=== PATIENT | male | born 1945 | race Caucasian/White ===

== ENCOUNTER 2017-01-19 22:46 | Inpatient (IN) | payer MEDICARE ==
[~2017-01-19] VITALS: Ht 180.3 cm; Wt 72.1 kg
[2017-01-19 23:43] LABS: BASO % 0 % (0-3); EOS % 0 % (0-3); HEMATOCRIT 43.4 % (39.0-53.0); HEMOGLOBIN 14.4 g/dL (13.0-17.5); LYMPH # 0.2 x10^3/uL (1.0-4.8); LYMPH % 3 % (24-48); MEAN CORPUSCULAR HEMOGLOBIN 30 pg (25-35); MEAN CORPUSCULAR HGB CONC 33 g/dL (31-37); MEAN CORPUSCULAR VOLUME 91 fL (79-100); MONO % 5 % (0-9); NEUT % 93 % (31-73); PLATELET COUNT 171 x10^3/uL (140-400); RED BLOOD COUNT 4.77 x10^6/uL (4.30-5.70); RED CELL DISTRIBUTION WIDTH 13.7 % (11.5-14.5); WHITE BLOOD COUNT 9.9 x10^3/uL (4.0-11.0)
[2017-01-19] MEDS ORDERED: PROCHLORPERAZINE 10 MG/2 ML VIAL. IV ONE (23:45)
[2017-01-19] MEDS ORDERED: ACETAMINOPHEN 325 MG TABLET. PO ONE (23:45)
[2017-01-19] MEDS ORDERED: IV NORMAL SALINE 1000ML BAG 1,000 ML IV SCH (23:45)
[2017-01-19] MEDS ORDERED: IPRATRPIUM/ALBUTEROL 0.5/2.5MG 3 ML NEBU. NEB ONE (23:45)
[2017-01-19] MEDS ORDERED: PREDNISONE 10 MG TABLET PO ONE (23:45)
[2017-01-20 00:01] LABS: ALBUMIN 3.5 g/dL (3.4-5.0); CREATININE 1.2 mg/dL (0.7-1.3); GFR 59.5; POTASSIUM 4.6 mmol/L (3.5-5.1); TOTAL BILIRUBIN 0.4 mg/dL (0.2-1.0)
[2017-01-20 00:11] LABS: CALCIUM 15.3 mg/dL (8.5-10.1)
[2017-01-20] MEDS ORDERED: ASPIRIN 81 MG TAB.CHEW PO ONE (00:15)
[2017-01-20] MEDS ORDERED: IOHEXOL 300 MG/ML 75 ML VIAL IV ONE (00:15)
[2017-01-20] MEDS ORDERED: CONTRAST GIVEN MC PRN (00:15)
[2017-01-20 00:23] LABS: OBC FLU VALID
--- NOTE | 2017-01-20 00:41 | RAD ---
CT head without contrast Indication: Headache and confusion. Axial imaging through the brain was performed without contrast. PQRS STATEMENT One or more of the following individualized dose reduction techniques were utilized for this study: 1.Automated exposure control. 2.Adjustment of the mA and/orkVaccording to patient size. 3.Use of iterative reconstruction technique. No prior studies are available for comparison. The ventricles and sulci are appropriate for the patient's age. No sulcal effacement, midline shift or hemorrhage is detected. The cisterns are patent. The visualized paranasal sinuses are clear. Impression: No acute intracranial process is detected. Electronically signed by: Patrick Yanez MD (Jan 20, 2017 00:40:19)
--- NOTE | 2017-01-20 00:48 | RAD ---
CT angiogram of the chest with contrast Indication: Hypoxia with cough and shortness of breath. Axial imaging through the chest was performed after the administration of intravenous contrast and utilizing the CT angiography protocol. Multiplanar, 3D and MIP reformations were also performed. PQRS STATEMENT One or more of the following individualized dose reduction techniques were utilized for this study: 1.Automated exposure control. 2.Adjustment of the mA and/orkVaccording to patient size. 3.Use of iterative reconstruction technique. No prior studies are available for comparison. Evaluation of the pulmonary arterial system is without evidence of thromboembolism. No filling defects are identified. The thoracic aorta is without dissection. Ascending aorta is dilated measuring 4.6 centimeters AP diameter. No axillary lymphadenopathy is identified. There is a soft tissue mass identified the right paratracheal and right hilar region. This is ill-defined and difficult to measure. Abnormal parenchymal density does extend into the right lung apex. At the level of the danii the soft tissue measures approximately 3.8 centimeters transverse by 3.3 centimeters AP. Soft tissue has a cephalocaudal measurement up to 10.6 centimeters. Abnormal soft tissues is identified in the subcarinal region. The left hilum is unremarkable. Severe emphysematous changes are identified in both lungs. There are interstitial fibrotic changes identified. No pericardial fluid is seen. There is trace pleural fluid or pleural thickening on the left. The upper abdomen is unremarkable. Impression: No evidence of pulmonary embolism or thoracic aortic dissection. There is mild dilatation of the ascending thoracic aorta. Mediastinal and right hilar mass with abnormal soft tissue extending into the right apex. This is likely owing to neoplasm. There are severe emphysematous changes throughout both lungs as well. Electronically signed by: Patrick Yanez MD (Jan 20, 2017 00:46:24)
[2017-01-20] MEDS ORDERED: IV NORMAL SALINE 1000ML BAG 1,000 ML IV ONE (01:00)
[2017-01-20 01:23] LABS: % EOS 1 % (0-5); PLT ESTIMATE ADEQUATE (ADEQUATE)
--- NOTE | 2017-01-20 01:24 | PHYS DOC ---
Past Medical History Past Medical History: High Cholesterol Additional Past Medical Histor: LUNG CA, CONSTIPATION, COPD, IRREGULAR HEART RYTHM Past Surgical History: Other Additional Past Surgical Histo: PORT THUMB SX Alcohol Use: None Drug Use: None Adult General Chief Complaint Chief Complaint: SHORTNESS OF BREATH HPI HPI Patient is a 71 year old male who presents with multiple complaints. He is accompanied by his , who contributes to history. Starting today he has been having increasing shortness of breath; this is worse with exertion. He is also been feeling weak, having nausea and vomiting, productive cough, aches in his arms, headache, fuzzy vision. He denies any chest pain. Patient has subjective fever last night, but does not feel so today. He has taken some Tylenol for pain with insufficient relief. Of note, patient has history of lung cancer and COPD. He also recently drove a motorhome to [place] and back. Review of Systems Review of Systems Constitutional: Subjective fever yesterday Eyes: Fuzzy vision, denies eye pain HENT: Denies nasal congestion or sore throat Respiratory: Productive cough, shortness of breath Cardiovascular: Denies chest pain GI: Nausea/vomiting. Denies abdominal pain, bloody stools or diarrhea : Denies dysuria or hematuria Musculoskeletal: B/l arm aching Integument: Denies rash or skin lesions Neurologic: Mild headache. Denies focal weakness or sensory changes Current Medications Current Medications Current Medications Medications (Trade) Dose Ordered Sig/Isaías Start Time Stop Time Status Last Admin Dose Admin Acetaminophen (Tylenol) 650 mg 1X ONCE 01/19/17 23:45 01/19/17 23:46 DC 01/20/17 00:07 650 MG Albuterol/ Ipratropium (Duoneb) 3 ml 1X ONCE 01/19/17 23:45 01/19/17 23:46 DC 01/20/17 00:39 3 ML Aspirin 324 mg 324 mg 1X ONCE 01/20/17 00:15 01/20/17 00:16 DC 01/20/17 00:46 324 MG Info (Do NOT chart on this entry -- for MONITORING) 1 each PRN DAILY PRN 01/20/17 00:15 01/22/17 00:14 Iohexol (Omnipaque 300 Mg/ml) 75 ml 1X ONCE 01/20/17 00:15 01/20/17 00:16 DC 01/20/17 00:23 75 ML Prednisone (Prednisone) 60 mg 1X ONCE 01/19/17 23:45 01/19/17 23:46 DC 01/20/17 00:07 60 MG Prochlorperazine Edisylate (Compazine) 10 mg 1X ONCE 01/19/17 23:45 01/19/17 23:46 DC 01/19/17 23:58 10 MG Sodium Chloride (Iv Sodium Chloride 0.9% 1000ml Bag) 1,000 ml @ 1,000 mls/hr 1X ONCE 01/20/17 01:00 01/20/17 01:59 DC 01/20/17 01:00 1,000 MLS/HR Allergies Allergies Allergies Coded Allergies Type Severity Reaction Last Updated Verified No Known Drug Allergies 01/19/17 No Physical Exam Physical Exam Constitutional: Well developed, well nourished, no acute distress, non-toxic appearance HENT: Normocephalic, atraumatic, bilateral external ears normal Eyes: PERRL, EOMI, conjunctiva normal, no discharge Neck: Normal range of motion, no stridor Cardiovascular: Heart rate normal, regular rhythm, no murmur Lungs & Thorax: Diminished breath sounds in b/l bases; frequent cough productive for thick brown sputum Abdomen: Bowel sounds normal, soft, non-distended, no TTP Skin: Warm, dry, no erythema, no rash Extremities: No obvious deformity, no edema Neurologic: Alert and oriented X 3, strength and sensation to light touch intact throughout, CN II-XII grossly intact, nystagmus to R noted Current Patient Data Vital Signs Vital Signs Date Time Temp Pulse Resp B/P Pulse Ox O2 Delivery O2 Flow Rate FiO2 01/20/17 01:14 90 21 138/84 91 Nasal Cannula 4 01/19/17 23:17 97.6 97.6 Lab Values Laboratory Tests Test 01/19/17 23:26 01/19/17 23:50 White Blood Count 9.9x10^3/uL (4.0-11.0) Red Blood Count 4.77x10^6/uL (4.30-5.70) Hemoglobin 14.4g/dL (13.0-17.5) Hematocrit 43.4% (39.0-53.0) Mean Corpuscular Volume 91fL (79-100) Mean Corpuscular Hemoglobin 30pg (25-35) Mean Corpuscular Hemoglobin Concent 33g/dL (31-37) Red Cell Distribution Width 13.7% (11.5-14.5) Platelet Count 171x10^3/uL (140-400) Neutrophils (%) (Auto) 93% (31-73) H Lymphocytes (%) (Auto) 3% (24-48) L Monocytes (%) (Auto) 5% (0-9) Eosinophils (%) (Auto) 0% (0-3) Basophils (%) (Auto) 0% (0-3) Neutrophils # (Auto) 9.2x10^3uL (1.8-7.7) H Lymphocytes # (Auto) 0.2x10^3/uL (1.0-4.8) L Monocytes # (Auto) 0.5x10^3/uL (0.0-1.1) Eosinophils # (Auto) 0.0x10^3/uL (0.0-0.7) Basophils # (Auto) 0.0x10^3/uL (0.0-0.2) Segmented Neutrophils % 97% (35-66) H Monocytes % 2% (0-10) Eosinophils % 1% (0-5) Platelet Estimate Adequate (ADEQUATE) Sodium Level 146mmol/L (136-145) H Potassium Level 4.6mmol/L (3.5-5.1) Chloride Level 104mmol/L (98-107) Carbon Dioxide Level 38mmol/L (21-32) H Anion Gap 4 (6-14) L Blood Urea Nitrogen 25mg/dL (8-26) Creatinine 1.2mg/dL (0.7-1.3) Estimated GFR (Cockcroft-Gault) 59.5 BUN/Creatinine Ratio 21 (6-20) H Glucose Level 137mg/dL (70-99) H Calcium Level 15.3mg/dL (8.5-10.1) *H Total Bilirubin 0.4mg/dL (0.2-1.0) Aspartate Amino Transferase (AST) 38U/L (15-37) H Alanine Aminotransferase (ALT) 35U/L (16-63) Alkaline Phosphatase 128U/L (46-116) H Troponin I Quantitative 0.121ng/mL (0.000-0.055) Total Protein 7.0g/dL (6.4-8.2) Albumin 3.5g/dL (3.4-5.0) Albumin/Globulin Ratio 1.0 (1.0-1.7) Influenza Type A Antigen Negative (NEGATIVE) Influenza Type B Antigen Negative (NEGATIVE) Laboratory Tests 01/19/17 23:26 Laboratory Tests 01/19/17 23:26 EKG EKG EKG (my read): sinus rhythm, rate 82, normal axis, intervals wnl, no clear ST/T changes, limited by artifact Radiology/Procedures Radiology/Procedures CXR (my read): Streaky opacity R midlung, hazy opacity R upper lung field CT head: Impression: No acute intracranial process is detected. CTA chest: Impression: No evidence of pulmonary embolism or thoracic aortic dissection. There is mild dilatation of the ascending thoracic aorta. Mediastinal and right hilar mass with abnormal soft tissue extending into the right apex. This is likely owing to neoplasm. There are severe emphysematous changes throughout both lungs as well. Course & Med Decision Making Course & Med Decision Making Pertinent Labs and Imaging studies reviewed. (See chart for details) Patient is 71-year-old male who presents with shortness of breath, nausea and vomiting, headache, aching in his arms. Suspect shortness of breath largely related to COPD. However also consider possibility of PE given history of cancer and recent long-distance road trip. Will obtain EKG, chest x-ray, CT head , CTA chest, labs to evaluate. IV fluids, nausea medication, acetaminophen, breathing treatment, steroids ordered for relief of symptoms. EKG and imaging results as above. Labs most notable for hypercalcemia, slightly elevated troponin. Dose of aspirin ordered. I spoke with Dr. Gonzalez; we will trend troponins and not anticoagulate at this time as patient does not have convincing symptoms of ACS. We will go ahead and cover for possible pneumonia as patient is on chemotherapy treatment has productive cough. Discussed results and plan with patient and family. We will admit under the care of Dr. Briggs for further evaluation and treatment. Dragon Disclaimer Dragon Disclaimer This electronic medical record was generated, in whole or in part, using a voice recognition dictation system. Departure Departure Impression: Primary Impression: SOB (shortness of breath) Additional Impressions: Hypoxia Hypercalcemia Disposition: ADMITTED INPATIENT Admitting Physician: Erin Briggs Condition: GUARDED Referrals: NO PCP (PCP) Problem Qualifiers YASIR CASTILLO MD Jan 20, 2017 01:24
[2017-01-20] MEDS ORDERED: PIPERACILLIN/TAZOBACTAM 4.5 GM in IV NORMAL SALINE 100ML 100 ML IV ONE (01:30)
[2017-01-20] MEDS ORDERED: ACETAMINOPHEN 325 MG TABLET. PO PRN ×2 (01:30→09:45)
[2017-01-20] MEDS ORDERED: ONDANSETRON PF 4 MG/2 ML VIAL. IV PRN (01:30)
[2017-01-20] MEDS ORDERED: MORPHINE SULFATE 4 MG/ML DISP.SYRIN. IV PRN (01:30)
[2017-01-20] MEDS ORDERED: PIP/TAZO PER PHARMACY MC PRN (01:30)
[2017-01-20] MEDS ORDERED: VANCOMYCIN 1.75 GM in IV NORMAL SALINE 500ML BAG 500 ML IV ONE (02:30)
--- NOTE | 2017-01-20 02:33 | ACF ---
Admission Forms Criteria HYPONATREMIA; HYPERNATREMIA; HYPOKALEMIA; HYPERKALEMIA; HYPOCALCEMIA; HYPERCALCEMIA Clinical Indications for Inpatient Care (Place 'X' for any and all applicable criteria): Ongoing inpatient care may be indicated for ANY ONE of the following [G](1)(2)(3 )(5): [ ]I. Hyponatremia with ANY ONE of the following: [ ]a) Sodium less than 130 mEq/L (mmol/L) (new) (6)(22) [ ]b) Sodium less than 135 mEq/L (mmol/L) with ANY ONE of the following: [ ]i) Severe medical etiology requiring inpatient management (eg, heart failure, hypovolemia) [ ]ii) Altered mental status [ ]iii) Seizures [ ]II. Hypernatremia with ANY ONE of the following: [ ]a) Sodium greater than 155 mEq/L (mmol/L) [ ]b) Sodium greater than 150 mEq/L (mmol/L) with ANY ONE of the following: [ ] i) Altered mental status [ ]ii) Seizures [ ]iii) Severe medical etiology (eg, hypovolemia, diabetes insipidus) [ ]iv) Severe weakness [ ]v) Severe medical etiology (eg, hemolysis, infection, drug overdose) [ ]III. Hypokalemia with ANY ONE of the following: [ ]a) Potassium less than 2.5 mEq/L (mmol/L) despite outpatient and emergency treatment [ ]b) Potassium less than 3.0 mEq/L (mmol/L) with ANY ONE of the following: [ ]i) Weakness [ ]ii) Cardiac abnormality (eg, arrhythmia, conduction disturbance) [ ]iii) Cardiac ischemia [ ]iv) Ileus [ ]v) Ongoing medical cause requiring inpatient management. ( e.g., acute renal wasting, SIADH) [ ]vi) Other severe symptoms [ ] IV. Hyperkalemia with ANY ONE of the following: [ ]a) Potassium greater than 6.5 mEq/L (mmol/L) [ ]b) Potassium greater than 5 mEq/L (mmol/L) with ANY ONE of the following: [ ]i) Severe ECG findings [H] [ ]ii) Acute worsening of renal failure (creatinine greater than 2.5 mg/dL (221 micromoles/L) or significant elevation for age and size) [ ] V. Hypocalcemia with ANY ONE of the following: [ ]a) Calcium less than 7 mg/dL (1.75 mmol/L) despite outpatient and emergency treatment(19) [ ]b) Calcium less than 8 mg/dL (2 mmol/L) with significant symptoms or findings; examples include: [ ]i) Cardiac abnormality (eg, arrhythmia or conduction disturbance) [ ]ii) Altered mental status [ ]iii) Seizures [ ]iv) Breathing difficulty [ ]v) Muscle spasms [X]. Hypercalcemia with ANY ONE of the following: [X]a) Calcium greater than 14 mg/dL (3.5 mmol/L) [ ]b) Calcium greater than 12 mg/dL (3 mmol/L) with ANY ONE of the following: [ ]i) Significant dehydration or hypovolemia as indicated by ANY ONE of the following(2): [ ]1. Clinically significant dehydration as indicated by ANY ONE of the following: [ ]A. Acute loss of weight from baseline (5% of body weight in adults, 9% in pediatric patients) [ ]B. Hemodynamic instability [ ]C. Acute renal failure [ ]D. Serum sodium greater than 150 mEq/L (mmol/L) [ ]2) Dehydration that is persistent indicated by ALL of the following: [ ]A. Oral rehydration therapy not tolerated or insufficient to adequately correct dehydration [ ]B. Appropriate intravenous treatment (eg, fluids ) does not readily correct dehydration ie, after 12 to 24 hours of treatment) [ ]ii) Significant symptoms or findings; examples include: [ ]1) Altered mental status [ ]2) Cardiac abnormality (eg, arrhythmia, conduction disturbance) [ ]3) Cardiac abnormality (eg, arrhythmia, conduction disturbance) The original [employer] [facility] content created by [employer] has been revised. The portions of the content which have been revised are identified through the use of italic text or in bold, and [facility] has neither reviewed nor approved the modified material. All other unmodified content is copyright [facility] [employer] Please see references footnoted in the original [facility] [employer]. edition 2016 Admission Criteria Met?: Yes DELVIN EDWARDS Jan 20, 2017 02:32
[2017-01-20 03:32] VITALS: BP 122/77
[2017-01-20] MEDS: IV NORMAL SALINE 1000ML BAG 1,000 ML IV SCH ×3 (03:34→17:30)
[2017-01-20] MEDS ORDERED: METO25TA4 PO (04:07)
[2017-01-20] MEDS ORDERED: ASCO500T2 PO (04:07)
[2017-01-20] MEDS: VANCOMYCIN PER PHARMACY MC PRN ×2 (04:07→10:49)
[2017-01-20] MEDS ORDERED: ASPI81TA44 PO (04:07)
[2017-01-20] MEDS ORDERED: MULT-404 PO (04:07)
[2017-01-20] MEDS ORDERED: DIGO125T PO (04:07)
[2017-01-20] MEDS ORDERED: CALC600T4 PO (04:07)
[2017-01-20] MEDS ORDERED: BREO ELLIPTA 11 EACH IH (04:07)
[2017-01-20] MEDS ORDERED: ACET1TAB46 PO (04:07)
[2017-01-20] MEDS: PIPERACILLIN/TAZOBACTAM 4.5 GM in IV NORMAL SALINE 100ML 100 ML IV SCH ×4 (05:39→23:57)
[2017-01-20 07:00] VITALS: BP 132/83
--- NOTE | 2017-01-20 07:11 | EKG ---
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
--- NOTE | 2017-01-20 07:29 | RAD ---
Indication: Cough, short of breath, hypoxia. Technique: Upright portable chest radiograph was obtained. Film was repeated to include the lung bases. No comparison is available. Findings: Streaky perihilar opacity greater on the right is noted. Port is noted. No focal airspace disease is apparent. Lungs are mildly hyperinflated. There is presumed apical scarring on the right. Heart is not enlarged and there is no heart failure. Bony structures are intact. Leads overlie the patient. Impression: 1. Streaky opacity on the right may represent posttreatment change. Comparison to outside priors would be of benefit in this patient. 2. Right apical opacity may represent scarring, again comparison to older films to document stability would be of benefit. 3. Emphysema.
[2017-01-20] MEDS ORDERED: PAMIDRONATE 90 MG in IV NORMAL SALINE 250ML 250 ML IV ONE (07:30)
[2017-01-20] MEDS ORDERED: IPRATRPIUM/ALBUTEROL 0.5/2.5MG 3 ML NEBU. NEB SCH (08:00)
--- NOTE | 2017-01-20 08:53 | PDOC ---
Provider Note Provider Note Onc consult dictated- [id number] Lung cancer, followed in [place] [facility] Concerned of progression given sx, hypercalcemia Plan: - Obtain outside records - Bone scan - MRi brain - CT A/P - Pamidronate ordered MADISON PRADO DO Jan 20, 2017 08:53
--- NOTE | 2017-01-20 09:37 | PDOC1 ---
History and Physical Current Problem List Problem List Problems Medical Problems: (1) Hypercalcemia Status: Acute (2) Hypoxia Status: Acute (3) SOB (shortness of breath) Status: Acute Current Medications Current Medications Current Medications Medications (Trade) Dose Ordered Sig/Isaías Start Time Stop Time Status Last Admin Dose Admin Acetaminophen (Tylenol) 650 mg PRN Q4HRS PRN 01/20/17 01:30 01/21/17 01:29 Albuterol/ Ipratropium (Duoneb) 3 ml 1X ONCE 01/19/17 23:45 01/19/17 23:46 DC 01/20/17 00:39 3 ML Albuterol/ Ipratropium 3 ml 3 ml RTQID 01/20/17 08:00 01/21/17 07:59 Aspirin (Children'S Aspirin) 324 mg 1X ONCE 01/20/17 00:15 01/20/17 00:16 DC 01/20/17 00:46 324 MG Info (Do NOT chart on this entry -- for MONITORING) 1 each PRN DAILY PRN 01/20/17 00:15 01/22/17 00:14 Iohexol (Omnipaque 300 Mg/ml) 75 ml 1X ONCE 01/20/17 00:15 01/20/17 00:16 DC 01/20/17 00:23 75 ML Morphine Sulfate 4 mg 4 mg PRN Q2HR PRN 01/20/17 01:30 01/21/17 01:29 Ondansetron HCl (Zofran) 4 mg PRN Q8HRS PRN 01/20/17 01:30 01/21/17 01:29 Pamidronate Disodium/Sodium Chloride (Aredia/Iv Sodium Chloride 0.9% 250ml) 250 ml @ 83.333 mls/ hr 1X ONCE 01/20/17 07:30 01/20/17 10:29 01/20/17 08:31 83.333 MLS/HR Piperacillin Sod/ Tazobactam Sod 4.5 gm/Sodium Chloride 100 ml @ 200 mls/hr Q6HRS 01/20/17 06:00 01/20/17 05:39 200 MLS/HR Piperacillin Sod/ Tazobactam Sod 1 each 1 each PRN DAILY PRN 01/20/17 01:30 Piperacillin Sod/ Tazobactam Sod/ Sodium Chloride (Zosyn/Iv Sodium Chloride 0.9% 100ml) 100 ml @ 200 mls/hr 1X ONCE 01/20/17 01:30 01/20/17 01:59 DC 01/20/17 02:13 200 MLS/HR Prednisone (Prednisone) 60 mg 1X ONCE 01/19/17 23:45 01/19/17 23:46 DC 01/20/17 00:07 60 MG Prochlorperazine Edisylate (Compazine) 10 mg 1X ONCE 01/19/17 23:45 01/19/17 23:46 DC 01/19/17 23:58 10 MG Sodium Chloride (Iv Sodium Chloride 0.9% 1000ml Bag) 1,000 ml @ 125 mls/hr Q8H 01/20/17 01:30 01/21/17 01:29 01/20/17 03:34 125 MLS/HR Vancomycin HCl (Vanco Per Pharmacy) 1 each PRN DAILY PRN 01/20/17 01:30 01/20/17 04:07 1 EACH Vancomycin HCl 1.75 gm/Sodium Chloride 500 ml @ 250 mls/hr 1X ONCE 01/20/17 02:30 01/20/17 04:29 DC 01/20/17 03:35 250 MLS/HR Vancomycin HCl 1 each 1 each 1X ONCE 01/22/17 03:00 01/22/17 03:01 Vancomycin HCl/ Sodium Chloride (Iv Sodium Chloride 0.9% 250ml) 250 ml @ 250 mls/hr Q24H 01/21/17 03:30 Allergies Allergies Allergies Coded Allergies Type Severity Reaction Last Updated Verified No Known Drug Allergies 01/19/17 No ROS Review of System CONSTITUTIONAL: No fever, fatigue, weakness, no energy, vomiting. EYES: No recent changes SKIN: No rash or itching CARDIOVASCULAR: No chest pain, syncope, palpitations, or edema RESPIRATORY: SOB or cough GASTROINTESTINAL: abdominal pain NEUROLOGICAL: No headaches or weakness ENDOCRINE: No cold or heat intolerance GENITOURINARY: No urgency or frequency of urination MUSCULOSKELETAL: No back pain or joint pain LYMPHATICS: No enlarged lymph nodes PSYCHIATRIC: No anxiety or depression Physical Exam Physical Exam GEN.: dehydrated, Alert and oriented. HEENT: Head is normocephalic, atraumatic NECK: Supple. no jvd LUNGS: rales, decreased airflow HEART: RRR, S1, S2 present. Peripheral pulses intact ABDOMEN: Soft, nontender. Positive bowel sounds. EXTREMITIES: Without any cyanosis. NEUROLOGIC: Normal speech, normal tone PSYCHIATRIC: Normal affect, normal mood. SKIN: Vitals Vitals Vital Signs Date Time Temp Pulse Resp B/P Pulse Ox O2 Delivery O2 Flow Rate FiO2 01/20/17 07:00 97.9 82 18 132/83 96 Room Air 97.9 01/20/17 04:00 4.0 Labs Labs Laboratory Tests Test 01/19/17 23:26 01/19/17 23:50 01/20/17 01:30 01/20/17 07:35 White Blood Count 9.9x10^3/uL (4.0-11.0) Red Blood Count 4.77x10^6/uL (4.30-5.70) Hemoglobin 14.4g/dL (13.0-17.5) Hematocrit 43.4% (39.0-53.0) Mean Corpuscular Volume 91fL (79-100) Mean Corpuscular Hemoglobin 30pg (25-35) Mean Corpuscular Hemoglobin Concent 33g/dL (31-37) Red Cell Distribution Width 13.7% (11.5-14.5) Platelet Count 171x10^3/uL (140-400) Neutrophils (%) (Auto) 93% (31-73) Lymphocytes (%) (Auto) 3% (24-48) Monocytes (%) (Auto) 5% (0-9) Eosinophils (%) (Auto) 0% (0-3) Basophils (%) (Auto) 0% (0-3) Neutrophils # (Auto) 9.2x10^3uL (1.8-7.7) Lymphocytes # (Auto) 0.2x10^3/uL (1.0-4.8) Monocytes # (Auto) 0.5x10^3/uL (0.0-1.1) Eosinophils # (Auto) 0.0x10^3/uL (0.0-0.7) Basophils # (Auto) 0.0x10^3/uL (0.0-0.2) Segmented Neutrophils % 97% (35-66) Monocytes % 2% (0-10) Eosinophils % 1% (0-5) Platelet Estimate Adequate (ADEQUATE) Sodium Level 146mmol/L (136-145) Potassium Level 4.6mmol/L (3.5-5.1) Chloride Level 104mmol/L (98-107) Carbon Dioxide Level 38mmol/L (21-32) Anion Gap 4 (6-14) Blood Urea Nitrogen 25mg/dL (8-26) Creatinine 1.2mg/dL (0.7-1.3) Estimated GFR (Cockcroft-Gault) 59.5 BUN/Creatinine Ratio 21 (6-20) Glucose Level 137mg/dL (70-99) Calcium Level 15.3mg/dL (8.5-10.1) Total Bilirubin 0.4mg/dL (0.2-1.0) Aspartate Amino Transf (AST/SGOT) 38U/L (15-37) Alanine Aminotransferase (ALT/SGPT) 35U/L (16-63) Alkaline Phosphatase 128U/L (46-116) Troponin I Quantitative 0.121ng/mL (0.000-0.055) 0.187ng/mL (0.000-0.055) Total Protein 7.0g/dL (6.4-8.2) Albumin 3.5g/dL (3.4-5.0) Albumin/Globulin Ratio 1.0 (1.0-1.7) Influenza Type A Antigen Negative (NEGATIVE) Influenza Type B Antigen Negative (NEGATIVE) Lactic Acid Level 1.8mmol/L (0.4-2.0) Laboratory Tests Test 01/19/17 23:26 01/19/17 23:50 01/20/17 01:30 01/20/17 07:35 White Blood Count 9.9x10^3/uL (4.0-11.0) Red Blood Count 4.77x10^6/uL (4.30-5.70) Hemoglobin 14.4g/dL (13.0-17.5) Hematocrit 43.4% (39.0-53.0) Mean Corpuscular Volume 91fL (79-100) Mean Corpuscular Hemoglobin 30pg (25-35) Mean Corpuscular Hemoglobin Concent 33g/dL (31-37) Red Cell Distribution Width 13.7% (11.5-14.5) Platelet Count 171x10^3/uL (140-400) Neutrophils (%) (Auto) 93% (31-73) Lymphocytes (%) (Auto) 3% (24-48) Monocytes (%) (Auto) 5% (0-9) Eosinophils (%) (Auto) 0% (0-3) Basophils (%) (Auto) 0% (0-3) Neutrophils # (Auto) 9.2x10^3uL (1.8-7.7) Lymphocytes # (Auto) 0.2x10^3/uL (1.0-4.8) Monocytes # (Auto) 0.5x10^3/uL (0.0-1.1) Eosinophils # (Auto) 0.0x10^3/uL (0.0-0.7) Basophils # (Auto) 0.0x10^3/uL (0.0-0.2) Segmented Neutrophils % 97% (35-66) Monocytes % 2% (0-10) Eosinophils % 1% (0-5) Platelet Estimate Adequate (ADEQUATE) Sodium Level 146mmol/L (136-145) Potassium Level 4.6mmol/L (3.5-5.1) Chloride Level 104mmol/L (98-107) Carbon Dioxide Level 38mmol/L (21-32) Anion Gap 4 (6-14) Blood Urea Nitrogen 25mg/dL (8-26) Creatinine 1.2mg/dL (0.7-1.3) Estimated GFR (Cockcroft-Gault) 59.5 BUN/Creatinine Ratio 21 (6-20) Glucose Level 137mg/dL (70-99) Calcium Level 15.3mg/dL (8.5-10.1) Total Bilirubin 0.4mg/dL (0.2-1.0) Aspartate Amino Transf (AST/SGOT) 38U/L (15-37) Alanine Aminotransferase (ALT/SGPT) 35U/L (16-63) Alkaline Phosphatase 128U/L (46-116) Troponin I Quantitative 0.121ng/mL (0.000-0.055) 0.187ng/mL (0.000-0.055) Total Protein 7.0g/dL (6.4-8.2) Albumin 3.5g/dL (3.4-5.0) Albumin/Globulin Ratio 1.0 (1.0-1.7) Influenza Type A Antigen Negative (NEGATIVE) Influenza Type B Antigen Negative (NEGATIVE) Lactic Acid Level 1.8mmol/L (0.4-2.0) VTE Prophylaxis Ordered VTE Prophylaxis Devices: No VTE Pharmacological Prophylaxi: Yes AKI XIONG MD Jan 20, 2017 09:37
[2017-01-20] MEDS ORDERED: ALBUTEROL SULFATE 2.5 MG/3 ML NEBU. NEB PRN (09:45)
[2017-01-20] MEDS ORDERED: hydrALAZINE 20 MG/ML VIAL. IVP PRN (09:45)
--- NOTE | 2017-01-20 09:51 | PDOC ---
PULMONARY PROGRESS NOTES Vitals Vital Signs Date Time Temp Pulse Resp B/P Pulse Ox O2 Delivery O2 Flow Rate FiO2 01/20/17 07:00 97.9 82 18 132/83 96 Room Air 97.9 01/20/17 04:00 4.0 Labs Laboratory Tests Test 01/19/17 23:26 01/19/17 23:50 01/20/17 01:30 01/20/17 07:35 White Blood Count 9.9x10^3/uL (4.0-11.0) Red Blood Count 4.77x10^6/uL (4.30-5.70) Hemoglobin 14.4g/dL (13.0-17.5) Hematocrit 43.4% (39.0-53.0) Mean Corpuscular Volume 91fL (79-100) Mean Corpuscular Hemoglobin 30pg (25-35) Mean Corpuscular Hemoglobin Concent 33g/dL (31-37) Red Cell Distribution Width 13.7% (11.5-14.5) Platelet Count 171x10^3/uL (140-400) Neutrophils (%) (Auto) 93% (31-73) Lymphocytes (%) (Auto) 3% (24-48) Monocytes (%) (Auto) 5% (0-9) Eosinophils (%) (Auto) 0% (0-3) Basophils (%) (Auto) 0% (0-3) Neutrophils # (Auto) 9.2x10^3uL (1.8-7.7) Lymphocytes # (Auto) 0.2x10^3/uL (1.0-4.8) Monocytes # (Auto) 0.5x10^3/uL (0.0-1.1) Eosinophils # (Auto) 0.0x10^3/uL (0.0-0.7) Basophils # (Auto) 0.0x10^3/uL (0.0-0.2) Segmented Neutrophils % 97% (35-66) Monocytes % 2% (0-10) Eosinophils % 1% (0-5) Platelet Estimate Adequate (ADEQUATE) Sodium Level 146mmol/L (136-145) Potassium Level 4.6mmol/L (3.5-5.1) Chloride Level 104mmol/L (98-107) Carbon Dioxide Level 38mmol/L (21-32) Anion Gap 4 (6-14) Blood Urea Nitrogen 25mg/dL (8-26) Creatinine 1.2mg/dL (0.7-1.3) Estimated GFR (Cockcroft-Gault) 59.5 BUN/Creatinine Ratio 21 (6-20) Glucose Level 137mg/dL (70-99) Calcium Level 15.3mg/dL (8.5-10.1) Total Bilirubin 0.4mg/dL (0.2-1.0) Aspartate Amino Transf (AST/SGOT) 38U/L (15-37) Alanine Aminotransferase (ALT/SGPT) 35U/L (16-63) Alkaline Phosphatase 128U/L (46-116) Troponin I Quantitative 0.121ng/mL (0.000-0.055) 0.187ng/mL (0.000-0.055) Total Protein 7.0g/dL (6.4-8.2) Albumin 3.5g/dL (3.4-5.0) Albumin/Globulin Ratio 1.0 (1.0-1.7) Influenza Type A Antigen Negative (NEGATIVE) Influenza Type B Antigen Negative (NEGATIVE) Lactic Acid Level 1.8mmol/L (0.4-2.0) Laboratory Tests Test 01/19/17 23:26 01/19/17 23:50 01/20/17 01:30 01/20/17 07:35 White Blood Count 9.9x10^3/uL (4.0-11.0) Red Blood Count 4.77x10^6/uL (4.30-5.70) Hemoglobin 14.4g/dL (13.0-17.5) Hematocrit 43.4% (39.0-53.0) Mean Corpuscular Volume 91fL (79-100) Mean Corpuscular Hemoglobin 30pg (25-35) Mean Corpuscular Hemoglobin Concent 33g/dL (31-37) Red Cell Distribution Width 13.7% (11.5-14.5) Platelet Count 171x10^3/uL (140-400) Neutrophils (%) (Auto) 93% (31-73) Lymphocytes (%) (Auto) 3% (24-48) Monocytes (%) (Auto) 5% (0-9) Eosinophils (%) (Auto) 0% (0-3) Basophils (%) (Auto) 0% (0-3) Neutrophils # (Auto) 9.2x10^3uL (1.8-7.7) Lymphocytes # (Auto) 0.2x10^3/uL (1.0-4.8) Monocytes # (Auto) 0.5x10^3/uL (0.0-1.1) Eosinophils # (Auto) 0.0x10^3/uL (0.0-0.7) Basophils # (Auto) 0.0x10^3/uL (0.0-0.2) Segmented Neutrophils % 97% (35-66) Monocytes % 2% (0-10) Eosinophils % 1% (0-5) Platelet Estimate Adequate (ADEQUATE) Sodium Level 146mmol/L (136-145) Potassium Level 4.6mmol/L (3.5-5.1) Chloride Level 104mmol/L (98-107) Carbon Dioxide Level 38mmol/L (21-32) Anion Gap 4 (6-14) Blood Urea Nitrogen 25mg/dL (8-26) Creatinine 1.2mg/dL (0.7-1.3) Estimated GFR (Cockcroft-Gault) 59.5 BUN/Creatinine Ratio 21 (6-20) Glucose Level 137mg/dL (70-99) Calcium Level 15.3mg/dL (8.5-10.1) Total Bilirubin 0.4mg/dL (0.2-1.0) Aspartate Amino Transf (AST/SGOT) 38U/L (15-37) Alanine Aminotransferase (ALT/SGPT) 35U/L (16-63) Alkaline Phosphatase 128U/L (46-116) Troponin I Quantitative 0.121ng/mL (0.000-0.055) 0.187ng/mL (0.000-0.055) Total Protein 7.0g/dL (6.4-8.2) Albumin 3.5g/dL (3.4-5.0) Albumin/Globulin Ratio 1.0 (1.0-1.7) Influenza Type A Antigen Negative (NEGATIVE) Influenza Type B Antigen Negative (NEGATIVE) Lactic Acid Level 1.8mmol/L (0.4-2.0) Medications Active Scripts Medications Dose Route/Sig Days Date Category Acetaminophen Pm Caplet (Acetaminophen/Diphenhydramine) 1 Each Tablet 1 Each PO HS 01/20/17 Reported Men's Multi-Vitamin (Multivitamin) 1 Each Tablet 1 Each PO DAILY 01/20/17 Reported Calcium (Calcium Carbonate) 600 Mg Tablet 600 Mg PO DAILY 01/20/17 Reported Vitamin C (Ascorbic Acid) 500 Mg Tablet 500 Mg PO DAILY 01/20/17 Reported Children's Aspirin (Aspirin) 81 Mg Tab.chew 81 Mg PO DAILY 01/20/17 Reported Breo Ellipta 100-25 Mcg Inh (Fluticasone/Vilanterol) 1 Each Aer.pow.ba 1 Puff IH DAILY 01/20/17 Reported Digoxin 125 Mcg Tablet 0.125 Mcg PO DAILY 01/20/17 Reported Metoprolol Tartrate 25 Mg Tablet 25 Mg PO DAILY 01/20/17 Reported GELY DANIEL MD Jan 20, 2017 09:51
[2017-01-20] MEDS: ASPIRIN 81 MG TAB.CHEW PO SCH (10:38)
[2017-01-20] MEDS: DIGOXIN 125 MCG TABLET PO SCH (10:39)
[2017-01-20] MEDS: METOPROLOL TART IMMED RELEASE 25 MG TABLET PO SCH (10:39)
[2017-01-20 10:45] VITALS: BP 138/75
[2017-01-20] MEDS: ALBUTEROL SULFATE 2.5 MG/3 ML NEBU. NEB SCH ×3 (11:15→20:23)
--- NOTE | 2017-01-20 11:23 | PDOC2 ---
VIKI GARCÍA HOP STRAINER 01/20/17 1123: CARDIAC CONSULT DATE OF CONSULT Date of Consult DATE: 01/20/17 TIME: 11:17 REASON FOR CONSULT Reason for Consult: Elevated troponin REFERRING PHYSICIAN Referring Physician: Dr. Byrd SOURCE Source: Chart review, Patient HISTORY OF PRESENT ILLNESS HISTORY OF PRESENT ILLNESS This is a 71 yo male, with a history of stage IIIB lung CA s/p tx with radiation /chemotherapy and COPD, who presented with complaints of shortness of breath. Symptoms have been ongoing for the last 2-3 weeks. Hospitalized last December for similar symptoms. Was place on continuous oxygen therapy at 2L. Pateint has recently increased flow initially to 3L then again to 4LNC due to hypoxia and shortness of air. Patient and drove motor home back from [place] over the weekend. Arrived in town yesterday and came directly to the ED. Patient refused to go the the hospital while on the road. reports oxygen saturation has been in the mid 70's to low 80's since Thursday despite 4L of O2. Vomited throughout day Thursday. Also complaints of difficulty walking due to leg pain and blurred vision. Denied any chest pain, palpitations, dizziness, or diaphoresis. reports increased confusion over the last day or so. She is concerned of possible brain mets as she has noticed confusion of the last 2-3 months. No recent cardiac workup. Patient follow with oncologist at both [place], [place] and in [place] as they travel and spend winter in [place]. Recently sold house in [place] and moved to [place], [place] which is now home. Was given prognosis of less than 1 year to live in August in 2014. Last wishes were to visit family in [place] then spend the winter in [place] one last time, which they did. OSH DNR. PAST MEDICAL HISTORY Cardiovascular: HTN, Hyperlipidemia Pulmonary: COPD, Other (lung CA tx with radiation and chemotherapy ) CENTRAL NERVOUS SYSTEM: Other (confusion) GI: No pertinent hx Heme/Onc: No pertinent hx Hepatobiliary: No pertinent hx Psych: No pertinent hx Musculoskeletal: Osteoarthritis Rheumatologic: No pertinent hx Infectious disease: No pertinent hx ENT: No pertinent hx Renal/: No pertinent hx Endocrine: No pertinent hx Dermatology: No pertinent hx PAST SURGICAL HISTORY Past Surgical History: Other (right knee sx) FAMILY HISTORY Family History: Coronary Artery Disease, Stroke SOCIAL HISTORY Smoke: Quit (with diagnosis of lung CA 2 years ago) ALCOHOL: occassional Drugs: None Lives: with Family CURRENT MEDICATIONS CURRENT MEDICATIONS Current Medications Medications (Trade) Dose Ordered Sig/Isaías Route PRN Reason Start Time Stop Time Status Last Admin Dose Admin Sodium Chloride (Iv Sodium Chloride 0.9% 1000ml Bag) 1,000 ml @ 1,000 mls/hr Q1H IV 01/19/17 23:45 01/20/17 00:44 DC 01/19/17 23:50 Albuterol/ Ipratropium (Duoneb) 3 ml 1X ONCE NEB 01/19/17 23:45 01/19/17 23:46 DC 01/20/17 00:39 Prednisone (Prednisone) 60 mg 1X ONCE PO 01/19/17 23:45 01/19/17 23:46 DC 01/20/17 00:07 Prochlorperazine Edisylate (Compazine) 10 mg 1X ONCE IV 01/19/17 23:45 01/19/17 23:46 DC 01/19/17 23:58 Acetaminophen (Tylenol) 650 mg 1X ONCE PO 01/19/17 23:45 01/19/17 23:46 DC 01/20/17 00:07 Iohexol (Omnipaque 300 Mg/ml) 75 ml 1X ONCE IV 01/20/17 00:15 01/20/17 00:16 DC 01/20/17 00:23 Aspirin 324 mg 324 mg 1X ONCE PO 01/20/17 00:15 01/20/17 00:16 DC 01/20/17 00:46 Sodium Chloride (Iv Sodium Chloride 0.9% 1000ml Bag) 1,000 ml @ 1,000 mls/hr 1X ONCE IV 01/20/17 01:00 01/20/17 01:59 DC 01/20/17 01:00 Vancomycin HCl 1 each 1 each PRN DAILY PRN MC SEE COMMENTS 01/20/17 01:30 01/20/17 10:49 Piperacillin Sod/ Tazobactam Sod 4.5 gm/Sodium Chloride 100 ml @ 200 mls/hr 1X ONCE IV 01/20/17 01:30 01/20/17 01:59 DC 01/20/17 02:13 Sodium Chloride 1,000 ml @ 125 mls/hr Q8H IV 01/20/17 01:30 01/21/17 01:29 01/20/17 03:34 Vancomycin HCl 1.75 gm/Sodium Chloride 500 ml @ 250 mls/hr 1X ONCE IV 01/20/17 02:30 01/20/17 04:29 DC 01/20/17 03:35 Piperacillin Sod/ Tazobactam Sod 4.5 gm/Sodium Chloride 100 ml @ 200 mls/hr Q6HRS IV 01/20/17 06:00 01/20/17 05:39 Pamidronate Disodium/Sodium Chloride (Aredia/Iv Sodium Chloride 0.9% 250ml) 250 ml @ 83.333 mls/ hr 1X ONCE IV 01/20/17 07:30 01/20/17 10:29 DC 01/20/17 08:31 Aspirin (Children'S Aspirin) 81 mg DAILY PO 01/20/17 10:00 01/20/17 10:38 Digoxin (Lanoxin) 125 mcg DAILY PO 01/20/17 10:00 01/20/17 10:39 Metoprolol Tartrate (Lopressor) 25 mg DAILY PO 01/20/17 10:00 01/20/17 10:39 Albuterol Sulfate (Ventolin Neb Soln) 2.5 mg RTQID NEB 01/20/17 12:00 01/20/17 11:15 ALLERGIES ALLERGIES: Coded Allergies: No Known Drug Allergies (Unverified , 01/19/17) ROS Review of System 14 point ROS conducted with pertinent positives noted above in HPI. PHYSICAL EXAM General: Alert, Oriented X3, Cooperative, No acute distress, Other (resting in bed comfortably) HEENT: Atraumatic, Mucous membr. moist/pink Lungs: Other (diminished bases ) Heart: Regular rate, Normal S1, Normal S2, Other (2/6 systolic murmur ) Abdomen: Soft, No tenderness Extremities: No edema, Normal pulses Skin: No breakdown, No significant lesion Neuro: Normal speech, Sensation intact Psych/Mental Status: Mental status NL, Mood NL MUSCULOSKELETAL: Osteoarthritic changes both hands VITALS VITALS Vital Signs Date Time Temp Pulse Resp B/P Pulse Ox O2 Delivery O2 Flow Rate FiO2 01/20/17 10:45 97.9 81 18 138/75 96 97.9 01/20/17 07:00 Room Air 01/20/17 04:00 4.0 LABS Lab: Laboratory Tests Test 01/19/17 23:26 01/19/17 23:50 01/20/17 01:30 01/20/17 07:35 White Blood Count 9.9x10^3/uL (4.0-11.0) Red Blood Count 4.77x10^6/uL (4.30-5.70) Hemoglobin 14.4g/dL (13.0-17.5) Hematocrit 43.4% (39.0-53.0) Mean Corpuscular Volume 91fL (79-100) Mean Corpuscular Hemoglobin 30pg (25-35) Mean Corpuscular Hemoglobin Concent 33g/dL (31-37) Red Cell Distribution Width 13.7% (11.5-14.5) Platelet Count 171x10^3/uL (140-400) Neutrophils (%) (Auto) 93% (31-73) Lymphocytes (%) (Auto) 3% (24-48) Monocytes (%) (Auto) 5% (0-9) Eosinophils (%) (Auto) 0% (0-3) Basophils (%) (Auto) 0% (0-3) Neutrophils # (Auto) 9.2x10^3uL (1.8-7.7) Lymphocytes # (Auto) 0.2x10^3/uL (1.0-4.8) Monocytes # (Auto) 0.5x10^3/uL (0.0-1.1) Eosinophils # (Auto) 0.0x10^3/uL (0.0-0.7) Basophils # (Auto) 0.0x10^3/uL (0.0-0.2) Segmented Neutrophils % 97% (35-66) Monocytes % 2% (0-10) Eosinophils % 1% (0-5) Platelet Estimate Adequate (ADEQUATE) Sodium Level 146mmol/L (136-145) Potassium Level 4.6mmol/L (3.5-5.1) Chloride Level 104mmol/L (98-107) Carbon Dioxide Level 38mmol/L (21-32) Anion Gap 4 (6-14) Blood Urea Nitrogen 25mg/dL (8-26) Creatinine 1.2mg/dL (0.7-1.3) Estimated GFR (Cockcroft-Gault) 59.5 BUN/Creatinine Ratio 21 (6-20) Glucose Level 137mg/dL (70-99) Calcium Level 15.3mg/dL (8.5-10.1) Total Bilirubin 0.4mg/dL (0.2-1.0) Aspartate Amino Transf (AST/SGOT) 38U/L (15-37) Alanine Aminotransferase (ALT/SGPT) 35U/L (16-63) Alkaline Phosphatase 128U/L (46-116) Troponin I Quantitative 0.121ng/mL (0.000-0.055) 0.187ng/mL (0.000-0.055) Total Protein 7.0g/dL (6.4-8.2) Albumin 3.5g/dL (3.4-5.0) Albumin/Globulin Ratio 1.0 (1.0-1.7) Influenza Type A Antigen Negative (NEGATIVE) Influenza Type B Antigen Negative (NEGATIVE) Lactic Acid Level 1.8mmol/L (0.4-2.0) ASSESSMENT/PLAN ASSESSMENT/PLAN 1. Mildly elevated troponin 2. Acute on chronic hypoxic respiratory failure 3. Lung CA; stage IIIB with probably brain mets 4. COPD 5. Hypercalcemia 6. Hypertension 7. Hyperlipidemia Recommendations Mild troponin elevated likely secondary to prolonged hypoxia will check echo to assess LV function not candidate for further ischemic workup given advanced lung CA with probably metastasis and poor prognosis supportive care from CV standpoint ? palliative care for Hospice eval Problems: REUBEN MATHIS MD 01/20/17 2386: CARDIAC CONSULT ALLERGIES ALLERGIES: Coded Allergies: No Known Drug Allergies (Unverified , 01/19/17) ASSESSMENT/PLAN ASSESSMENT/PLAN Patient seen and examined. Agree with above nurse practitioner noted. 71-year-old man presenting with dyspnea in the setting of metastatic lung cancer. On cardiac examination he has normal heart tones. Echocardiogram is unremarkable. Labs notable for minimally elevated troponin which is not unexpected given his comorbidities. I had an extensive discussion with the patient and his with regards to various approaches to therapy. In light of the fact that he has poor prognosis of less than one year and given that he has normal LV function we would defer any further aggressive treatment. Especially, in light of the fact that he might have some brain metastases it would be of low yield and high risk to expose him to anticoagulation. The patient and the family are in agreement to continue conservative therapy at this time from a cardiac standpoint. We will be available for any further questions. Thank you for this consultation. Problems: VIKI GARCÍA APRN Jan 20, 2017 11:23 REUBEN MATHIS MD Jan 20, 2017 18:46
[2017-01-20] MEDS ORDERED: GADOBUTROL 7.5 MMOL/7.5 ML VIAL IV ONE (12:15)
--- NOTE | 2017-01-20 12:41 | RAD ---
PROCEDURE MRI brain without and with contrast. HISTORY Confusion with altered mental status, lung cancer TECHNIQUE Pre and post-contrast, multiplanar, multi sequential MR imaging was performed formed of the brain. Contrast: 6 cc Gadavist COMPARISON None FINDINGS There is mild motion. Allowing for some variable phase encoding artifact on the post-contrast images, no convincing abnormal intracranial enhancement is identified. There is no intra-axial mass effect, midline shift, extra-axial fluid collection. Ventricular size is within normal limits. There is mild generalized supratentorial atrophy. There is minimal T2 and FLAIR hyperintense signal abnormality of the supratentorial periventricular white matter bilaterally, also several scattered foci in the deep white matter greatest of the frontal parietal lobes. There is preservation of the major arterial intracranial flow voids at the skull base. There is tiny focus of fluid of the left mastoid air cell, otherwise mastoid air cells aerated. There is patchy minimal ethmoid air cell mucosal thickening. There has been lens surgery bilaterally. Cerebellar tonsils are normal in location. There is preservation of marrow signal of the clivus. There is no significant abnormality of the pineal gland or pituitary gland. There are a couple of small foci of adjacent signal abnormality of the left anterior thalamus which may be due to sequela of old lacunar infarcts although no significant associated FLAIR hyperintense signal, possibly prominent perivascular spaces. There is a tiny 0.5 centimeter focus of signal abnormality of the right parietal calvarium, no bony expansion although there appears to be mild enhancement. There is also focus of enhancing signal abnormality of the left frontal calvarium up to 0.8 cm AP. There is focus of hemosiderin deposition of the right cerebellum. IMPRESSION 1. There is no convincing abnormal intracranial enhancement. 2. Scattered overall mild T2 and FLAIR hyperintense signal abnormality of the supratentorial white matter is nonspecific, probably due to chronic microvascular ischemic disease in patient this age. 3. There is mild supratentorial atrophy. 4. There is a small focus of marrow signal abnormality of the right parietal calvarium, larger focus of the left frontal calvarium. 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 Electronically signed by: Dinesh Casiano MD (Jan 20, 2017 12:39:55)
[2017-01-20 13:42] LABS: ALBUMIN 2.8 g/dL (3.4-5.0); CREATININE 1.4 mg/dL (0.7-1.3); GFR 49.8; POTASSIUM 4.6 mmol/L (3.5-5.1)
[2017-01-20 13:45] LABS: CALCIUM 12.7 mg/dL (8.5-10.1)
--- NOTE | 2017-01-20 15:32 | RAD ---
Radionuclide bone scan, 01/20/2017: History: Lung cancer Whole body imaging was performed following IV injection of 25 mCi of technetium 99m MDP. No previous bone scan is available for comparison purposes. The following findings are delineated on today's exam: 1. There is mildly increased activity along the anterior end of a midthoracic rib on the right. Review of the CT study demonstrates a small destructive lesion involving the anterior aspect of the right fifth rib which appears to correspond to the bone scan abnormality. 2. There is faintly increased activity at the level of the costovertebral articulation at approximately T10 on the left. Correlation with the recent CT chest study suggests the presence of a subtle destructive lesion involving the posterior rib end as seen on image 115 of series #3. 3. Mildly increased activity at the shoulders, sternoclavicular joints, knees and hands is likely arthritic in nature. 4. Activity of the radionuclide about the skeleton major joints is otherwise unremarkable. IMPRESSION: Single bilateral rib lesions as described above compatible with metastatic disease.
--- NOTE | 2017-01-20 16:35 | CARD ---
APPROVED REPORT EXAM: Two-dimensional and M-mode echocardiogram with Doppler and color Doppler. Other Information Quality : Technically LimitedHR: 85bpm Rhythm : NSRTechnically limited study due to echo window options. INDICATION Elevated Troponin 2D DIMENSIONS RVDd3.4 (2.9-3.5cm)Left Atrium(2D)3.8 (1.6-4.0cm) IVSd0.9 (0.7-1.1cm)Aortic Root(2D)3.3 (2.0-3.7cm) LVDd4.4 (3.9-5.9cm)LVOT Diameter2.3 (1.8-2.4cm) PWd0.8 (0.7-1.1cm)LVDs3.1 (2.5-4.0cm) FS (%) 30.4 %SV50.6 ml LVEF(%)58.1 (>50%) Aortic Valve AoV Peak Ramy.128.7cm/sAoV VTI20.9cm AO Peak GR.6.6mmHgLVOT Peak Ramy.102.2cm/s LVOT VTI 17.17cmAO Mean GR.3mmHg JAH (VMAX)3.69fb3DJR (VTI)3.42cm2 AI P 1/2 Oqpu587vh Mitral Valve MV E Ucxpbhsc29.3cm/sMV DECEL [id number] MV A Pqrlywpo16.6cm/sMV E Mean Gr.2mmHg MV TYC81xdB/A Ratio0.6 MV A Xukfmsqp470goAOG (PHT)2.79cm2 TDI E/Lateral E'3.8E/Medial E'8.8 Pulmonary Valve PV Peak Eklhzfsw188.9cm/sPV Peak Grad.4mmHg RVOT VTI19.2cm Tricuspid Valve TR P. Joepwuut047zc/sRAP EEJRPULG8usEl TR Peak Gr.78msLvUJLF28pdYm LEFT VENTRICLE The left ventricle is normal size. There is normal left ventricular wall thickness. Left ventricle sy stolic function is normal. The Ejection Fraction is 55-60%. There is normal LV segmental wall motion. Transmitral Doppler flow pattern is Grade I-abnormal relaxation pattern. There is no ventricular sep omari defect visualized. RIGHT VENTRICLE The right ventricle is normal size. The right ventricular systolic function is normal. ATRIA The left atrium size is normal. The right atrium size is normal. The interatrial septum is intact wit h no evidence for an atrial septal defect or patent foramen ovale as noted on 2-D or Doppler imaging. AORTIC VALVE The aortic valve is normal in structure and function. The aortic valve is trileaflet. Doppler and Col or Flow revealed trace to mild aortic regurgitation. There is no significant aortic valvular stenosis . MITRAL VALVE The mitral valve is normal in structure and function. There is no mitral valve stenosis. Doppler and Color Flow revealed no mitral valve regurgitation noted. TRICUSPID VALVE The tricuspid valve is normal in structure. Doppler and Color Flow revealed mild tricuspid regurgitat ion. The PA pressure was estimated at 55 mmHg. There is no tricuspid valve stenosis. PULMONIC VALVE Doppler and Color Flow revealed no pulmonic valvular regurgitation. There is no pulmonic valvular nawaf nosis. GREAT VESSELS The aortic root is normal in size. Pulmonary veins not well visualized. The IVC was not visualized. PERICARDIAL EFFUSION There is no evidence of significant pericardial effusion. Critical Notification Critical Value: No <Conclusion> Left ventricle systolic function is normal. The Ejection Fraction is 55-60%. There is normal LV segmental wall motion. Doppler and Color Flow revealed trace to mild aortic regurgitation. Doppler and Color Flow revealed mild tricuspid regurgitation. The PA pressure was estimated at 55 mmH g.
[2017-01-20 19:45] VITALS: BP 131/76
[2017-01-20] MEDS: BUDESONIDE 0.5 MG/2 ML NEBU NEB SCH (20:23)
--- NOTE | 2017-01-20 20:24 | PDOC ---
PULMONARY PROGRESS NOTES Vitals Vital Signs Date Time Temp Pulse Resp B/P Pulse Ox O2 Delivery O2 Flow Rate FiO2 01/20/17 19:45 97.7 81 20 131/76 94 Room Air 97.7 01/20/17 11:15 2.0 Labs Laboratory Tests Test 01/19/17 23:26 01/19/17 23:50 01/20/17 01:30 01/20/17 07:35 White Blood Count 9.9x10^3/uL (4.0-11.0) Red Blood Count 4.77x10^6/uL (4.30-5.70) Hemoglobin 14.4g/dL (13.0-17.5) Hematocrit 43.4% (39.0-53.0) Mean Corpuscular Volume 91fL (79-100) Mean Corpuscular Hemoglobin 30pg (25-35) Mean Corpuscular Hemoglobin Concent 33g/dL (31-37) Red Cell Distribution Width 13.7% (11.5-14.5) Platelet Count 171x10^3/uL (140-400) Neutrophils (%) (Auto) 93% (31-73) Lymphocytes (%) (Auto) 3% (24-48) Monocytes (%) (Auto) 5% (0-9) Eosinophils (%) (Auto) 0% (0-3) Basophils (%) (Auto) 0% (0-3) Neutrophils # (Auto) 9.2x10^3uL (1.8-7.7) Lymphocytes # (Auto) 0.2x10^3/uL (1.0-4.8) Monocytes # (Auto) 0.5x10^3/uL (0.0-1.1) Eosinophils # (Auto) 0.0x10^3/uL (0.0-0.7) Basophils # (Auto) 0.0x10^3/uL (0.0-0.2) Segmented Neutrophils % 97% (35-66) Monocytes % 2% (0-10) Eosinophils % 1% (0-5) Platelet Estimate Adequate (ADEQUATE) Sodium Level 146mmol/L (136-145) Potassium Level 4.6mmol/L (3.5-5.1) Chloride Level 104mmol/L (98-107) Carbon Dioxide Level 38mmol/L (21-32) Anion Gap 4 (6-14) Blood Urea Nitrogen 25mg/dL (8-26) Creatinine 1.2mg/dL (0.7-1.3) Estimated GFR (Cockcroft-Gault) 59.5 BUN/Creatinine Ratio 21 (6-20) Glucose Level 137mg/dL (70-99) Calcium Level 15.3mg/dL (8.5-10.1) Total Bilirubin 0.4mg/dL (0.2-1.0) Aspartate Amino Transf (AST/SGOT) 38U/L (15-37) Alanine Aminotransferase (ALT/SGPT) 35U/L (16-63) Alkaline Phosphatase 128U/L (46-116) Troponin I Quantitative 0.121ng/mL (0.000-0.055) 0.187ng/mL (0.000-0.055) Total Protein 7.0g/dL (6.4-8.2) Albumin 3.5g/dL (3.4-5.0) Albumin/Globulin Ratio 1.0 (1.0-1.7) Influenza Type A Antigen Negative (NEGATIVE) Influenza Type B Antigen Negative (NEGATIVE) Lactic Acid Level 1.8mmol/L (0.4-2.0) Test 01/20/17 13:23 Sodium Level 145mmol/L (136-145) Potassium Level 4.6mmol/L (3.5-5.1) Chloride Level 106mmol/L (98-107) Carbon Dioxide Level 34mmol/L (21-32) Anion Gap 5 (6-14) Blood Urea Nitrogen 23mg/dL (8-26) Creatinine 1.4mg/dL (0.7-1.3) Estimated GFR (Cockcroft-Gault) 49.8 Glucose Level 147mg/dL (70-99) Calcium Level 12.7mg/dL (8.5-10.1) Ionized Calcium 1.78mmol/L (1.13-1.32) Troponin I Quantitative 0.167ng/mL (0.000-0.055) Albumin 2.8g/dL (3.4-5.0) Laboratory Tests Test 01/19/17 23:26 01/19/17 23:50 01/20/17 01:30 01/20/17 07:35 White Blood Count 9.9x10^3/uL (4.0-11.0) Red Blood Count 4.77x10^6/uL (4.30-5.70) Hemoglobin 14.4g/dL (13.0-17.5) Hematocrit 43.4% (39.0-53.0) Mean Corpuscular Volume 91fL (79-100) Mean Corpuscular Hemoglobin 30pg (25-35) Mean Corpuscular Hemoglobin Concent 33g/dL (31-37) Red Cell Distribution Width 13.7% (11.5-14.5) Platelet Count 171x10^3/uL (140-400) Neutrophils (%) (Auto) 93% (31-73) Lymphocytes (%) (Auto) 3% (24-48) Monocytes (%) (Auto) 5% (0-9) Eosinophils (%) (Auto) 0% (0-3) Basophils (%) (Auto) 0% (0-3) Neutrophils # (Auto) 9.2x10^3uL (1.8-7.7) Lymphocytes # (Auto) 0.2x10^3/uL (1.0-4.8) Monocytes # (Auto) 0.5x10^3/uL (0.0-1.1) Eosinophils # (Auto) 0.0x10^3/uL (0.0-0.7) Basophils # (Auto) 0.0x10^3/uL (0.0-0.2) Segmented Neutrophils % 97% (35-66) Monocytes % 2% (0-10) Eosinophils % 1% (0-5) Platelet Estimate Adequate (ADEQUATE) Sodium Level 146mmol/L (136-145) Potassium Level 4.6mmol/L (3.5-5.1) Chloride Level 104mmol/L (98-107) Carbon Dioxide Level 38mmol/L (21-32) Anion Gap 4 (6-14) Blood Urea Nitrogen 25mg/dL (8-26) Creatinine 1.2mg/dL (0.7-1.3) Estimated GFR (Cockcroft-Gault) 59.5 BUN/Creatinine Ratio 21 (6-20) Glucose Level 137mg/dL (70-99) Calcium Level 15.3mg/dL (8.5-10.1) Total Bilirubin 0.4mg/dL (0.2-1.0) Aspartate Amino Transf (AST/SGOT) 38U/L (15-37) Alanine Aminotransferase (ALT/SGPT) 35U/L (16-63) Alkaline Phosphatase 128U/L (46-116) Troponin I Quantitative 0.121ng/mL (0.000-0.055) 0.187ng/mL (0.000-0.055) Total Protein 7.0g/dL (6.4-8.2) Albumin 3.5g/dL (3.4-5.0) Albumin/Globulin Ratio 1.0 (1.0-1.7) Influenza Type A Antigen Negative (NEGATIVE) Influenza Type B Antigen Negative (NEGATIVE) Lactic Acid Level 1.8mmol/L (0.4-2.0) Test 01/20/17 13:23 Sodium Level 145mmol/L (136-145) Potassium Level 4.6mmol/L (3.5-5.1) Chloride Level 106mmol/L (98-107) Carbon Dioxide Level 34mmol/L (21-32) Anion Gap 5 (6-14) Blood Urea Nitrogen 23mg/dL (8-26) Creatinine 1.4mg/dL (0.7-1.3) Estimated GFR (Cockcroft-Gault) 49.8 Glucose Level 147mg/dL (70-99) Calcium Level 12.7mg/dL (8.5-10.1) Ionized Calcium 1.78mmol/L (1.13-1.32) Troponin I Quantitative 0.167ng/mL (0.000-0.055) Albumin 2.8g/dL (3.4-5.0) Medications Active Scripts Medications Dose Route/Sig Days Date Category Acetaminophen Pm Caplet (Acetaminophen/Diphenhydramine) 1 Each Tablet 1 Each PO HS 01/20/17 Reported Men's Multi-Vitamin (Multivitamin) 1 Each Tablet 1 Each PO DAILY 01/20/17 Reported Calcium (Calcium Carbonate) 600 Mg Tablet 600 Mg PO DAILY 01/20/17 Reported Vitamin C (Ascorbic Acid) 500 Mg Tablet 500 Mg PO DAILY 01/20/17 Reported Children's Aspirin (Aspirin) 81 Mg Tab.chew 81 Mg PO DAILY 01/20/17 Reported Breo Ellipta 100-25 Mcg Inh (Fluticasone/Vilanterol) 1 Each Aer.pow.ba 1 Puff IH DAILY 01/20/17 Reported Digoxin 125 Mcg Tablet 0.125 Mcg PO DAILY 01/20/17 Reported Metoprolol Tartrate 25 Mg Tablet 25 Mg PO DAILY 01/20/17 Reported Impression . FULL NOTE DICTATED A/C RESP FAILURE AECOPD POSSIBLE PNEUMONIA HYPERCALCEMIA STAGE IIIB LUNG CA AGREE WITH CURRENT RX THANKS GELY DANIEL MD Jan 20, 2017 20:24
[2017-01-20] MEDS: ENOXAPARIN 40 MG/0.4 ML DISP.SYRIN. SQ SCH (20:47)
--- NOTE | 2017-01-20 22:40 | HP ---
ADMIT DATE: 01/20/2017 CHIEF COMPLAINT: Shortness of breath. HISTORY OF PRESENT ILLNESS: This is a 71-year-old male patient with prior history of lung cancer status post radiation and chemotherapy, who has been getting his treatment in [place], [place], presents to the ER with complaints of vomiting for nearly 1 day with decreased appetite and weakness and lethargy, not wanting to get out of the bed. Reportedly, he was diagnosed more than 1 year ago and completed his treatment. As per the ER report, the patient was developing some hypoxia, oxygen saturations were low 80's yesterday and he was on chronic oxygen around 2 liters at rest. At the time of my examination this morning, the patient appears very weak and not able to provide much history. Most of the history is obtained from the notes and other subspecialists. PAST MEDICAL HISTORY: Hypertension, hyperlipidemia, COPD, lung cancer. PAST SURGICAL HISTORY: Right knee surgery. FAMILY HISTORY: Coronary artery disease. SOCIAL HISTORY: Quit smoking nearly 2 years ago, occasionally takes alcohol, no substance abuse. REVIEW OF SYSTEMS: CONSTITUTIONAL: No fever or chills. EYES: No recent vision changes. SKIN: No rash or itching. CARDIOVASCULAR: No chest pain, syncope, palpitations or edema. RESPIRATORY: No shortness of breath, cough. GASTROINTESTINAL: No nausea, vomiting, diarrhea or abdominal pain. NEUROLOGICAL: No headache, paralysis. ENDOCRINOLOGIC: No cold or heat intolerance. GENITOURINARY: No burning with urination, no urgency. MUSCULOSKELETAL: No back pain or joint pain. LYMPHATICS: No enlarged nodes. PSYCHIATRIC: No anxiety or depression. PHYSICAL EXAM: GENERAL: No apparent distress. HEENT: Head normocephalic, atraumatic. NECK: Supple. LUNGS: Clear to auscultation. HEART: Regular rate and rhythm; S1, S2 present; pulses intact. ABDOMEN: Soft and positive bowel sounds. EXTREMITIES: No cyanosis or edema. NEUROLOGIC: Normal speech and normal tone; alert and oriented. PSYCHIATRIC: Normal affect, normal mood. SKIN: No ulceration. LABORATORY FINDINGS: Sodium 145, potassium 4.6, chloride 106, carbon dioxide 34, anion gap is 5 and creatinine is 1.4 and glucose is 147. Initial calcium is 15.3. Troponin is 0.121, 0.187, and 0.167. Hematology: WBC 9.9, hemoglobin 12.4, platelets 171. IMAGING STUDIES: Head CT, no acute process seen. Chest x-ray streaky opacity in the right. Right apical opacity. CTA of the chest, no evidence of PE or thoracic aortic dissection. Mediastinal right hilar mass. ASSESSMENT AND PLAN: 1. Acute on chronic hypoxic respiratory failure. 2. Hypercalcemia, most likely related to malignancy. 3. Elevated troponin. 4. History of lung cancer, unknown type and staging. 5. Dehydration 6. Physical Debility PLAN: 1. He was started on aggressive IV hydration. We will continue IV hydration and he was also started on bisphosphonates. 2. For hypercalcemia, continue to monitor calcium. 3. Continue Zosyn and vancomycin. 4. Pharmacy to dose vancomycin. 5. Oncology, Pulmonology, Cardiology has been consulted. 6. Possible echocardiogram in the a.m. 7. Overall prognosis guarded. 8. Awaiting further investigation such as an MRI and bone scan. 9. Obtain records from other hospital in [place]. AKI XIONG MD DR: ELI/shayy JOB#: [id number] / [id number] JACKIE
[2017-01-20 23:15] VITALS: BP 146/90
--- NOTE | 2017-01-21 02:36 | CONS ---
DATE OF CONSULTATION: 01/20/2017 ATTENDING PHYSICIAN: Dr. Arora. REASON FOR CONSULTATION: The patient is seen in pulmonary consultation at the request of Dr. Arora for a history of stage IIIB lung cancer, treated with chemoradiation. HISTORY OF PRESENT ILLNESS: The patient is a 71-year-old that recently drove back home from [place]. His initial diagnosis was established in [place], [place], he has been treated there. He has had chemo and radiation. I believe there is evidence of recurrent disease. He was due to switch from Opdivo to Keytruda. The patient presented with increasing shortness breath, cough, mostly nonproductive, some chest discomfort. He was evaluated with CT of the chest. I personally reviewed the CT, there is no evidence of pulmonary embolism. There is a mass within right hilar region and mediastinal region extending to right apex. There are also some emphysematous changes. The patient also was evaluated and found to have hypercalcemia along with elevated troponin level. He has been seen by the concert manager. The patient reports no hemoptysis. No fever, chills or night sweats. PAST MEDICAL HISTORY: 1. Stage 3B lung cancer as described above, status post chemoradiation. 2. Hyperlipidemia. 3. Hypertension. 4. Chronic obstructive pulmonary disease. PAST SURGICAL HISTORY: No recent major surgeries. ALLERGIES: No known drug allergies. CURRENT MEDICATIONS: List was reviewed. Please see the MRAD. The patient is receiving Zosyn along with vancomycin, nebulized treatments. REVIEW OF SYSTEMS: As indicated above, otherwise, a 10-point system was reviewed and negative. PHYSICAL EXAMINATION: VITAL SIGNS: The patient was in no respiratory distress, currently on 2 L of oxygen supplementation, saturation greater than 92%. HEENT: Eyes, the sclerae were nonicteric. NECK: Jugular venous distention was not elevated. No lymphadenopathy. CHEST: Full expansion. LUNGS: Poor airway flow with no wheezes. CARDIOVASCULAR: Regular rate and rhythm with S1, S2, no S3. ABDOMEN: Soft, nontender, nondistended. EXTREMITIES: No clubbing, cyanosis or pitting edema. NEUROLOGIC: The patient was awake, alert, following commands. A detailed neuro exam was not performed. LABORATORY DATA: White count was noted to be normal, hemoglobin and hematocrit noted. Electrolytes were noted. Calcium level initially 15.3, after treatment 12.7. Troponin level elevated. IMPRESSION: 1. Acute on chronic respiratory failure, multifactorial. 2. Stage 3B lung cancer with evidence of possible recurrence. 3. Hyperlipidemia secondary to above. 4. CT chest, no evidence of pulmonary embolism. 5. COPD. 6. Chest pain, elevated troponin, per Cardiology. 7. Hypertension. 8. Hyperlipidemia. PLAN: 1. From a pulmonary standpoint of view, I recommend continue current medical management. 2. Obtain old films for comparison. 3. Oxygen supplementation. 4. Nebulized treatments. 5. Follow calcium level. 6. Deep venous thrombosis prophylaxis. I do appreciate the privilege in sharing in the patient's care. GELY DANIEL MD DR: TYRELL/shayy JOB#: [id number] / [id number]
[2017-01-21 03:05] VITALS: BP 153/98
[2017-01-21] MEDS: HYDROCODONE/APAP 5/325MG TABLET. PO PRN ×2 (04:38→10:28)
[2017-01-21] MEDS: VANCOMYCIN 1 GM in IV NORMAL SALINE 250ML 250 ML IV SCH (04:38)
[2017-01-21 05:29] LABS: BASO % 0 % (0-3); EOS % 0 % (0-3); HEMATOCRIT 37.1 % (39.0-53.0); HEMOGLOBIN 12.1 g/dL (13.0-17.5); LYMPH # 0.1 x10^3/uL (1.0-4.8); LYMPH % 1 % (24-48); MEAN CORPUSCULAR HEMOGLOBIN 30 pg (25-35); MEAN CORPUSCULAR HGB CONC 33 g/dL (31-37); MEAN CORPUSCULAR VOLUME 91 fL (79-100); MONO % 3 % (0-9); NEUT % 96 % (31-73); PLATELET COUNT 135 x10^3/uL (140-400); RED CELL DISTRIBUTION WIDTH 13.8 % (11.5-14.5); WHITE BLOOD COUNT 11.5 x10^3/uL (4.0-11.0)
[2017-01-21 05:30] LABS: CALCIUM 11.5 mg/dL (8.5-10.1); CREATININE 1.2 mg/dL (0.7-1.3); GFR 59.5; POTASSIUM 4.2 mmol/L (3.5-5.1)
[2017-01-21] MEDS: PIPERACILLIN/TAZOBACTAM 4.5 GM in IV NORMAL SALINE 100ML 100 ML IV SCH ×3 (06:03→17:44)
[2017-01-21] MEDS: ALBUTEROL SULFATE 2.5 MG/3 ML NEBU. NEB SCH ×4 (06:06→19:55)
[2017-01-21] MEDS: BUDESONIDE 0.5 MG/2 ML NEBU NEB SCH ×2 (06:06→19:54)
[2017-01-21] MEDS ORDERED: IOHEXOL 300 MG/ML 75 ML VIAL IV ONE (06:30)
[2017-01-21] MEDS ORDERED: CONTRAST GIVEN MC PRN (06:30)
[2017-01-21] MEDS ORDERED: DIGOXIN 500 MCG/2 ML AMPUL. IV ONE (06:30)
--- NOTE | 2017-01-21 06:45 | CONS ---
DATE OF CONSULTATION: 01/20/2017 REFERRING PROVIDER: Dr. Briggs. REASON FOR CONSULTATION: Lung cancer. HISTORY OF PRESENT ILLNESS: The patient is a 71-year-old male who has been treated by Dr. Tobar in [place], [place], for his lung cancer. He reports being diagnosed 2 years ago and underwent chemotherapy, radiation, and possibly some combined treatment. He has most recently been on Opdivo, but reports that he may have had progression and his oncologist may be wanting to change his treatment. He has had somewhat scattered care recently, as he spends the winter in [place]. He thinks his last scans were 2 months ago. He presented overnight with shortness of breath, dyspnea on exertion, weakness, nausea, vomiting, constipation, and cough. He has had some headaches as well. He cannot tell me exactly how long these symptoms have been occurring. He presented with significant hypercalcemia of 15.3. His CBC was unremarkable. CMP also fairly stable. CTA did not reveal any pulmonary embolism, but did show a very large 10.6 cm right hilar/mediastinal mass. CT head was negative. PAST MEDICAL HISTORY: Lung cancer, COPD, hyperlipidemia, chronic oxygen dependence. PAST SURGICAL HISTORY: Lung biopsy. FAMILY HISTORY: Mom and dad had hypertension. No history of any malignancies. SOCIAL HISTORY: He did recently travel back here from [place]. He has previously smoked 2 packs a day for several years, but quit 2 years ago. ALLERGIES: No known drug allergies. CURRENT MEDICATIONS: Tylenol, DuoNeb, morphine, Zofran, Zosyn, vancomycin, and normal saline. REVIEW OF SYSTEMS: Twelve-point review of systems completed and remarkable as above. PHYSICAL EXAMINATION: VITAL SIGNS: Temperature 97.9, pulse 82, respiratory rate 18, blood pressure 132/83, 96% O2 on 4 liters. GENERAL: He is alert and oriented. He is calm and in no distress at this time. He does appear fatigued. HEENT: Extraocular muscle strength is intact. Mucous membranes are moist. CARDIOVASCULAR: Heart is regular in rhythm and rate. LUNGS: Clear to auscultation bilaterally. ABDOMEN: Soft, nontender. No obvious organomegaly. EXTREMITIES: No edema. NEUROLOGIC: He has difficulty with memory at times, but no other focal neurologic deficits. LYMPHADENOPATHY: No palpable cervical or supraclavicular adenopathy. IMAGING AND LABORATORY DATA: Pertinent information reviewed as above. I will try to obtain outside records from his oncologist as well. ASSESSMENT AND PLAN: The patient is a 71-year-old male with the following medical problems: 1. Probable stage IV lung cancer: I do not have any outside records at this time. I will request them from his oncologist, Dr. Tobar in [place], [place]. It sounds like he may have had progression recently because he states that his oncologist is likely going to change his medication. He has most recently been on an immune-based medicine called Opdivo. His last dose was on 01/12/2017, so he would be due for his next dose next week. While he is here, I am going to order repeat staging with chest, abdomen and pelvis to be added to the CT chest that was performed in the Emergency Room. Given his hypercalcemia, I am also going to order a bone scan. Given his memory difficulties and headaches, I am also going to order an MRI brain. The CTs cannot be performed until tomorrow. 2. Hypercalcemia, likely malignant: I ordered pamidronate. He is on IV fluids. I also ordered a bone scan. 3. Headaches: MRI brain ordered. Thank you for alerting me of his admission. We will try to gather outside records and reassess the status of his lung cancer. MADISON PRADO DO DR: JOS/shayy JOB#: [id number] / [id number]
[2017-01-21 07:00] VITALS: BP 132/83
[2017-01-21] MEDS: DIGOXIN 125 MCG TABLET PO SCH (08:04)
[2017-01-21] MEDS: METOPROLOL TART IMMED RELEASE 25 MG TABLET PO SCH ×2 (08:04→21:35)
[2017-01-21] MEDS: ASPIRIN 81 MG TAB.CHEW PO SCH (09:18)
[2017-01-21] MEDS: IV NORMAL SALINE 1000ML BAG 1,000 ML IV SCH ×2 (09:22→17:23)
--- NOTE | 2017-01-21 10:10 | RAD ---
CT abdomen and pelvis with contrast, 01/21/2017: History: Restaging lung cancer Multidetector CT imaging was performed following an IV bolus injection of iodinated contrast material. No previous abdominal CT scans are available at this time for comparison purposes. There is moderate pulmonary infiltrate in the right lung base. This has worsened since CT chest images of 01/20/2017. There are now small bilateral pleural effusions. No hepatic abnormality is detected. The gallbladder is unremarkable. No pancreatic abnormality is seen. The spleen is of normal size. No renal or adrenal abnormality is detected. There is moderate aortoiliac calcific plaquing without evidence of aneurysm. No abdominal or pelvic adenopathy is seen. The prostate gland is mildly enlarged and contains multiple calcifications. There is a moderate size fecal impaction the rectum. There is gas in other scattered loops of large and small bowel in a nonspecific pattern. There is a small amount of free fluid in the pelvis. No free air is evident in the abdomen. There are mild scattered degenerative changes in the spine. A small mass is identified within the left posterior elements at L3 along the posterior aspect of the base of the left transverse process adjacent to the left L2-3 facet joint, best seen on axial image 33 of series #2. A bony metastasis is suspected. Note is made that the other probable bone metastases identified on yesterday's bone scan demonstrated only minimal radionuclide uptake, as can be seen with aggressive bony metastases. There is a suggestion of several other subtle tiny lytic lesions in the bones as evident in the left iliac wing on image 45 of series #2. IMPRESSION: 1. Worsening right basilar infiltrate with small bilateral pleural effusions. 2. No intra-abdominal metastatic disease is delineated. 3. Small amount of free fluid in the pelvis. 4. Moderate-sized fecal impaction the rectum. 5. Multifocal osseous metastatic disease as described above. PQRS Compliance Statement: One or more of the following individualized dose reduction techniques were utilized for this examination: 1. Automated exposure control 2. Adjustment of the mA and/or kV according to patient size 3. Use of iterative reconstruction technique
[2017-01-21] MEDS: MAGNESIUM HYDROXIDE 2,400 MG/30 ML ORAL.SUSP. PO PRN (10:28)
--- NOTE | 2017-01-21 11:06 | PDOC ---
PULMONARY PROGRESS NOTES Subjective pt coughing up some blood Vitals Vital Signs Date Time Temp Pulse Resp B/P Pulse Ox O2 Delivery O2 Flow Rate FiO2 01/21/17 10:28 93 Nasal Cannula 4.0 01/21/17 08:04 95 132/83 01/21/17 07:00 97.4 20 97.4 ROS: No Nausea, No Chest Pain, No Abdominal Pain, No Increase Cough General: Alert Lungs: Crackles Cardiovascular: S1, S2 Abdomen: Soft, Non-tender Neuro Exam: Alert Extremities: No Edema Skin: Warm Labs Laboratory Tests Test 01/19/17 23:26 01/19/17 23:50 01/20/17 01:30 01/20/17 07:35 White Blood Count 9.9x10^3/uL (4.0-11.0) Red Blood Count 4.77x10^6/uL (4.30-5.70) Hemoglobin 14.4g/dL (13.0-17.5) Hematocrit 43.4% (39.0-53.0) Mean Corpuscular Volume 91fL (79-100) Mean Corpuscular Hemoglobin 30pg (25-35) Mean Corpuscular Hemoglobin Concent 33g/dL (31-37) Red Cell Distribution Width 13.7% (11.5-14.5) Platelet Count 171x10^3/uL (140-400) Neutrophils (%) (Auto) 93% (31-73) Lymphocytes (%) (Auto) 3% (24-48) Monocytes (%) (Auto) 5% (0-9) Eosinophils (%) (Auto) 0% (0-3) Basophils (%) (Auto) 0% (0-3) Neutrophils # (Auto) 9.2x10^3uL (1.8-7.7) Lymphocytes # (Auto) 0.2x10^3/uL (1.0-4.8) Monocytes # (Auto) 0.5x10^3/uL (0.0-1.1) Eosinophils # (Auto) 0.0x10^3/uL (0.0-0.7) Basophils # (Auto) 0.0x10^3/uL (0.0-0.2) Segmented Neutrophils % 97% (35-66) Monocytes % 2% (0-10) Eosinophils % 1% (0-5) Platelet Estimate Adequate (ADEQUATE) Sodium Level 146mmol/L (136-145) Potassium Level 4.6mmol/L (3.5-5.1) Chloride Level 104mmol/L (98-107) Carbon Dioxide Level 38mmol/L (21-32) Anion Gap 4 (6-14) Blood Urea Nitrogen 25mg/dL (8-26) Creatinine 1.2mg/dL (0.7-1.3) Estimated GFR (Cockcroft-Gault) 59.5 BUN/Creatinine Ratio 21 (6-20) Glucose Level 137mg/dL (70-99) Calcium Level 15.3mg/dL (8.5-10.1) Total Bilirubin 0.4mg/dL (0.2-1.0) Aspartate Amino Transf (AST/SGOT) 38U/L (15-37) Alanine Aminotransferase (ALT/SGPT) 35U/L (16-63) Alkaline Phosphatase 128U/L (46-116) Troponin I Quantitative 0.121ng/mL (0.000-0.055) 0.187ng/mL (0.000-0.055) Total Protein 7.0g/dL (6.4-8.2) Albumin 3.5g/dL (3.4-5.0) Albumin/Globulin Ratio 1.0 (1.0-1.7) Influenza Type A Antigen Negative (NEGATIVE) Influenza Type B Antigen Negative (NEGATIVE) Lactic Acid Level 1.8mmol/L (0.4-2.0) Test 01/20/17 13:23 01/21/17 04:55 Sodium Level 145mmol/L (136-145) 145mmol/L (136-145) Potassium Level 4.6mmol/L (3.5-5.1) 4.2mmol/L (3.5-5.1) Chloride Level 106mmol/L (98-107) 105mmol/L (98-107) Carbon Dioxide Level 34mmol/L (21-32) 34mmol/L (21-32) Anion Gap 5 (6-14) 6 (6-14) Blood Urea Nitrogen 23mg/dL (8-26) 23mg/dL (8-26) Creatinine 1.4mg/dL (0.7-1.3) 1.2mg/dL (0.7-1.3) Estimated GFR (Cockcroft-Gault) 49.8 59.5 Glucose Level 147mg/dL (70-99) 111mg/dL (70-99) Calcium Level 12.7mg/dL (8.5-10.1) 11.5mg/dL (8.5-10.1) Ionized Calcium 1.78mmol/L (1.13-1.32) Troponin I Quantitative 0.167ng/mL (0.000-0.055) Albumin 2.8g/dL (3.4-5.0) White Blood Count 11.5x10^3/uL (4.0-11.0) Red Blood Count 4.10x10^6/uL (4.30-5.70) Hemoglobin 12.1g/dL (13.0-17.5) Hematocrit 37.1% (39.0-53.0) Mean Corpuscular Volume 91fL (79-100) Mean Corpuscular Hemoglobin 30pg (25-35) Mean Corpuscular Hemoglobin Concent 33g/dL (31-37) Red Cell Distribution Width 13.8% (11.5-14.5) Platelet Count 135x10^3/uL (140-400) Neutrophils (%) (Auto) 96% (31-73) Lymphocytes (%) (Auto) 1% (24-48) Monocytes (%) (Auto) 3% (0-9) Eosinophils (%) (Auto) 0% (0-3) Basophils (%) (Auto) 0% (0-3) Neutrophils # (Auto) 11.1x10^3uL (1.8-7.7) Lymphocytes # (Auto) 0.1x10^3/uL (1.0-4.8) Monocytes # (Auto) 0.3x10^3/uL (0.0-1.1) Eosinophils # (Auto) 0.0x10^3/uL (0.0-0.7) Basophils # (Auto) 0.0x10^3/uL (0.0-0.2) Laboratory Tests Test 01/20/17 13:23 01/21/17 04:55 Sodium Level 145mmol/L (136-145) 145mmol/L (136-145) Potassium Level 4.6mmol/L (3.5-5.1) 4.2mmol/L (3.5-5.1) Chloride Level 106mmol/L (98-107) 105mmol/L (98-107) Carbon Dioxide Level 34mmol/L (21-32) 34mmol/L (21-32) Anion Gap 5 (6-14) 6 (6-14) Blood Urea Nitrogen 23mg/dL (8-26) 23mg/dL (8-26) Creatinine 1.4mg/dL (0.7-1.3) 1.2mg/dL (0.7-1.3) Estimated GFR (Cockcroft-Gault) 49.8 59.5 Glucose Level 147mg/dL (70-99) 111mg/dL (70-99) Calcium Level 12.7mg/dL (8.5-10.1) 11.5mg/dL (8.5-10.1) Ionized Calcium 1.78mmol/L (1.13-1.32) Troponin I Quantitative 0.167ng/mL (0.000-0.055) Albumin 2.8g/dL (3.4-5.0) White Blood Count 11.5x10^3/uL (4.0-11.0) Red Blood Count 4.10x10^6/uL (4.30-5.70) Hemoglobin 12.1g/dL (13.0-17.5) Hematocrit 37.1% (39.0-53.0) Mean Corpuscular Volume 91fL (79-100) Mean Corpuscular Hemoglobin 30pg (25-35) Mean Corpuscular Hemoglobin Concent 33g/dL (31-37) Red Cell Distribution Width 13.8% (11.5-14.5) Platelet Count 135x10^3/uL (140-400) Neutrophils (%) (Auto) 96% (31-73) Lymphocytes (%) (Auto) 1% (24-48) Monocytes (%) (Auto) 3% (0-9) Eosinophils (%) (Auto) 0% (0-3) Basophils (%) (Auto) 0% (0-3) Neutrophils # (Auto) 11.1x10^3uL (1.8-7.7) Lymphocytes # (Auto) 0.1x10^3/uL (1.0-4.8) Monocytes # (Auto) 0.3x10^3/uL (0.0-1.1) Eosinophils # (Auto) 0.0x10^3/uL (0.0-0.7) Basophils # (Auto) 0.0x10^3/uL (0.0-0.2) Medications Active Scripts Medications Dose Route/Sig Days Date Category Acetaminophen Pm Caplet (Acetaminophen/Diphenhydramine) 1 Each Tablet 1 Each PO HS 01/20/17 Reported Men's Multi-Vitamin (Multivitamin) 1 Each Tablet 1 Each PO DAILY 01/20/17 Reported Calcium (Calcium Carbonate) 600 Mg Tablet 600 Mg PO DAILY 01/20/17 Reported Vitamin C (Ascorbic Acid) 500 Mg Tablet 500 Mg PO DAILY 01/20/17 Reported Children's Aspirin (Aspirin) 81 Mg Tab.chew 81 Mg PO DAILY 01/20/17 Reported Breo Ellipta 100-25 Mcg Inh (Fluticasone/Vilanterol) 1 Each Aer.pow.ba 1 Puff IH DAILY 01/20/17 Reported Digoxin 125 Mcg Tablet 0.125 Mcg PO DAILY 01/20/17 Reported Metoprolol Tartrate 25 Mg Tablet 25 Mg PO DAILY 01/20/17 Reported Impression . 1. Acute on chronic respiratory failure, multifactorial. 2. Stage IV lung cancer with evidence of possible recurrence. 3. 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 CT chest, no evidence of pulmonary embolism. 5. COPD. 6. Chest pain, elevated troponin, per Cardiology. 7. Hypertension. 8. Hyperlipidemia. Plan . Pt now contemplating hospice 1. antibx and steroiid 2. Obtain old films for comparison. 3. Oxygen supplementation. 4. Nebulized treatments. 5. Follow calcium level. 6. Deep venous thrombosis prophylaxis. GELY DANIEL MD Jan 21, 2017 11:06
[2017-01-21 11:17] VITALS: BP 150/93
--- NOTE | 2017-01-21 11:30 | PDOC ---
PROGRESS NOTES Chief Complaint Chief Complaint 1. Acute on chronic hypoxic respiratory failure. improving. 2. Hypercalcemia, related to malignancy. 3. Elevated troponin. 4. 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 5. Pneumonia Plan continue abx for now Zosyn and vancomycin Pharmacy to dose vancomycin supplemental oxygen Dr Gann following, trying to obtain records from [place] continue iv hydration Palliative team consult prognosis guarded labs reviewed. Pain control with [place] History of Present Illness History of Present Illness no fever no chills better than yesterday Vitals Vitals Vital Signs Date Time Temp Pulse Resp B/P Pulse Ox O2 Delivery O2 Flow Rate FiO2 01/21/17 11:17 97.5 84 20 150/93 94 Nasal Cannula 3.0 97.5 Physical Exam General: Alert, Oriented X3, Cooperative, No acute distress, Other (resting in bed comfortably) Heart: Regular rate, Normal S1, Normal S2, Other (2/6 systolic murmur ) Abdomen: Soft, No tenderness Extremities: No edema, Normal pulses Skin: No breakdown, No significant lesion Labs LABS Laboratory Tests Test 01/20/17 13:23 01/21/17 04:55 Sodium Level 145mmol/L (136-145) 145mmol/L (136-145) Potassium Level 4.6mmol/L (3.5-5.1) 4.2mmol/L (3.5-5.1) Chloride Level 106mmol/L (98-107) 105mmol/L (98-107) Carbon Dioxide Level 34mmol/L (21-32) 34mmol/L (21-32) Anion Gap 5 (6-14) 6 (6-14) Blood Urea Nitrogen 23mg/dL (8-26) 23mg/dL (8-26) Creatinine 1.4mg/dL (0.7-1.3) 1.2mg/dL (0.7-1.3) Estimated GFR (Cockcroft-Gault) 49.8 59.5 Glucose Level 147mg/dL (70-99) 111mg/dL (70-99) Calcium Level 12.7mg/dL (8.5-10.1) 11.5mg/dL (8.5-10.1) Ionized Calcium 1.78mmol/L (1.13-1.32) Troponin I Quantitative 0.167ng/mL (0.000-0.055) Albumin 2.8g/dL (3.4-5.0) White Blood Count 11.5x10^3/uL (4.0-11.0) Red Blood Count 4.10x10^6/uL (4.30-5.70) Hemoglobin 12.1g/dL (13.0-17.5) Hematocrit 37.1% (39.0-53.0) Mean Corpuscular Volume 91fL (79-100) Mean Corpuscular Hemoglobin 30pg (25-35) Mean Corpuscular Hemoglobin Concent 33g/dL (31-37) Red Cell Distribution Width 13.8% (11.5-14.5) Platelet Count 135x10^3/uL (140-400) Neutrophils (%) (Auto) 96% (31-73) Lymphocytes (%) (Auto) 1% (24-48) Monocytes (%) (Auto) 3% (0-9) Eosinophils (%) (Auto) 0% (0-3) Basophils (%) (Auto) 0% (0-3) Neutrophils # (Auto) 11.1x10^3uL (1.8-7.7) Lymphocytes # (Auto) 0.1x10^3/uL (1.0-4.8) Monocytes # (Auto) 0.3x10^3/uL (0.0-1.1) Eosinophils # (Auto) 0.0x10^3/uL (0.0-0.7) Basophils # (Auto) 0.0x10^3/uL (0.0-0.2) Assessment and Plan Assessmemt and Plan Problems Medical Problems: (1) Hypercalcemia Status: Acute (2) Hypoxia Status: Acute (3) SOB (shortness of breath) Status: Acute Problems: Comment Review of Relevant I have reviewed the following items maria alejandra (where applicable) has been applied. Labs Laboratory Tests Test 01/19/17 23:26 01/19/17 23:50 01/20/17 01:30 01/20/17 07:35 White Blood Count 9.9x10^3/uL (4.0-11.0) Red Blood Count 4.77x10^6/uL (4.30-5.70) Hemoglobin 14.4g/dL (13.0-17.5) Hematocrit 43.4% (39.0-53.0) Mean Corpuscular Volume 91fL (79-100) Mean Corpuscular Hemoglobin 30pg (25-35) Mean Corpuscular Hemoglobin Concent 33g/dL (31-37) Red Cell Distribution Width 13.7% (11.5-14.5) Platelet Count 171x10^3/uL (140-400) Neutrophils (%) (Auto) 93% (31-73) Lymphocytes (%) (Auto) 3% (24-48) Monocytes (%) (Auto) 5% (0-9) Eosinophils (%) (Auto) 0% (0-3) Basophils (%) (Auto) 0% (0-3) Neutrophils # (Auto) 9.2x10^3uL (1.8-7.7) Lymphocytes # (Auto) 0.2x10^3/uL (1.0-4.8) Monocytes # (Auto) 0.5x10^3/uL (0.0-1.1) Eosinophils # (Auto) 0.0x10^3/uL (0.0-0.7) Basophils # (Auto) 0.0x10^3/uL (0.0-0.2) Segmented Neutrophils % 97% (35-66) Monocytes % 2% (0-10) Eosinophils % 1% (0-5) Platelet Estimate Adequate (ADEQUATE) Sodium Level 146mmol/L (136-145) Potassium Level 4.6mmol/L (3.5-5.1) Chloride Level 104mmol/L (98-107) Carbon Dioxide Level 38mmol/L (21-32) Anion Gap 4 (6-14) Blood Urea Nitrogen 25mg/dL (8-26) Creatinine 1.2mg/dL (0.7-1.3) Estimated GFR (Cockcroft-Gault) 59.5 BUN/Creatinine Ratio 21 (6-20) Glucose Level 137mg/dL (70-99) Calcium Level 15.3mg/dL (8.5-10.1) Total Bilirubin 0.4mg/dL (0.2-1.0) Aspartate Amino Transf (AST/SGOT) 38U/L (15-37) Alanine Aminotransferase (ALT/SGPT) 35U/L (16-63) Alkaline Phosphatase 128U/L (46-116) Troponin I Quantitative 0.121ng/mL (0.000-0.055) 0.187ng/mL (0.000-0.055) Total Protein 7.0g/dL (6.4-8.2) Albumin 3.5g/dL (3.4-5.0) Albumin/Globulin Ratio 1.0 (1.0-1.7) Influenza Type A Antigen Negative (NEGATIVE) Influenza Type B Antigen Negative (NEGATIVE) Lactic Acid Level 1.8mmol/L (0.4-2.0) Test 01/20/17 13:23 01/21/17 04:55 Sodium Level 145mmol/L (136-145) 145mmol/L (136-145) Potassium Level 4.6mmol/L (3.5-5.1) 4.2mmol/L (3.5-5.1) Chloride Level 106mmol/L (98-107) 105mmol/L (98-107) Carbon Dioxide Level 34mmol/L (21-32) 34mmol/L (21-32) Anion Gap 5 (6-14) 6 (6-14) Blood Urea Nitrogen 23mg/dL (8-26) 23mg/dL (8-26) Creatinine 1.4mg/dL (0.7-1.3) 1.2mg/dL (0.7-1.3) Estimated GFR (Cockcroft-Gault) 49.8 59.5 Glucose Level 147mg/dL (70-99) 111mg/dL (70-99) Calcium Level 12.7mg/dL (8.5-10.1) 11.5mg/dL (8.5-10.1) Ionized Calcium 1.78mmol/L (1.13-1.32) Troponin I Quantitative 0.167ng/mL (0.000-0.055) Albumin 2.8g/dL (3.4-5.0) White Blood Count 11.5x10^3/uL (4.0-11.0) Red Blood Count 4.10x10^6/uL (4.30-5.70) Hemoglobin 12.1g/dL (13.0-17.5) Hematocrit 37.1% (39.0-53.0) Mean Corpuscular Volume 91fL (79-100) Mean Corpuscular Hemoglobin 30pg (25-35) Mean Corpuscular Hemoglobin Concent 33g/dL (31-37) Red Cell Distribution Width 13.8% (11.5-14.5) Platelet Count 135x10^3/uL (140-400) Neutrophils (%) (Auto) 96% (31-73) Lymphocytes (%) (Auto) 1% (24-48) Monocytes (%) (Auto) 3% (0-9) Eosinophils (%) (Auto) 0% (0-3) Basophils (%) (Auto) 0% (0-3) Neutrophils # (Auto) 11.1x10^3uL (1.8-7.7) Lymphocytes # (Auto) 0.1x10^3/uL (1.0-4.8) Monocytes # (Auto) 0.3x10^3/uL (0.0-1.1) Eosinophils # (Auto) 0.0x10^3/uL (0.0-0.7) Basophils # (Auto) 0.0x10^3/uL (0.0-0.2) Laboratory Tests Test 01/20/17 13:23 01/21/17 04:55 Sodium Level 145mmol/L (136-145) 145mmol/L (136-145) Potassium Level 4.6mmol/L (3.5-5.1) 4.2mmol/L (3.5-5.1) Chloride Level 106mmol/L (98-107) 105mmol/L (98-107) Carbon Dioxide Level 34mmol/L (21-32) 34mmol/L (21-32) Anion Gap 5 (6-14) 6 (6-14) Blood Urea Nitrogen 23mg/dL (8-26) 23mg/dL (8-26) Creatinine 1.4mg/dL (0.7-1.3) 1.2mg/dL (0.7-1.3) Estimated GFR (Cockcroft-Gault) 49.8 59.5 Glucose Level 147mg/dL (70-99) 111mg/dL (70-99) Calcium Level 12.7mg/dL (8.5-10.1) 11.5mg/dL (8.5-10.1) Ionized Calcium 1.78mmol/L (1.13-1.32) Troponin I Quantitative 0.167ng/mL (0.000-0.055) Albumin 2.8g/dL (3.4-5.0) White Blood Count 11.5x10^3/uL (4.0-11.0) Red Blood Count 4.10x10^6/uL (4.30-5.70) Hemoglobin 12.1g/dL (13.0-17.5) Hematocrit 37.1% (39.0-53.0) Mean Corpuscular Volume 91fL (79-100) Mean Corpuscular Hemoglobin 30pg (25-35) Mean Corpuscular Hemoglobin Concent 33g/dL (31-37) Red Cell Distribution Width 13.8% (11.5-14.5) Platelet Count 135x10^3/uL (140-400) Neutrophils (%) (Auto) 96% (31-73) Lymphocytes (%) (Auto) 1% (24-48) Monocytes (%) (Auto) 3% (0-9) Eosinophils (%) (Auto) 0% (0-3) Basophils (%) (Auto) 0% (0-3) Neutrophils # (Auto) 11.1x10^3uL (1.8-7.7) Lymphocytes # (Auto) 0.1x10^3/uL (1.0-4.8) Monocytes # (Auto) 0.3x10^3/uL (0.0-1.1) Eosinophils # (Auto) 0.0x10^3/uL (0.0-0.7) Basophils # (Auto) 0.0x10^3/uL (0.0-0.2) Microbiology 01/20/17 Blood Culture - Preliminary, Resulted NO GROWTH AFTER 1 DAY Medications Current Medications Sodium Chloride (Iv Sodium Chloride 0.9% 1000ml Bag) 1,000 ml @ 1,000 mls/hr Q1H IV Last administered on 01/19/17 23:50; Start 01/19/17 at 23:45; Stop at 00:44; Status DC Albuterol/ Ipratropium (Duoneb) 3 ml 1X ONCE NEB Last administered on 00:39; Start 01/19/17 at 23:45; Stop 01/19/17 at 23:46; Status DC Prednisone (Prednisone) 60 mg 1X ONCE PO Last administered on 01/20/17 00:07 ; Start 01/19/17 at 23:45; Stop 01/19/17 at 23:46; Status DC Prochlorperazine Edisylate (Compazine) 10 mg 1X ONCE IV Last administered on 23:58; Start 01/19/17 at 23:45; Stop 01/19/17 at 23:46; Status DC Acetaminophen (Tylenol) 650 mg 1X ONCE PO Last administered on 01/20/17 00:07 ; Start 01/19/17 at 23:45; Stop 01/19/17 at 23:46; Status DC Iohexol (Omnipaque 300 Mg/ml) 75 ml 1X ONCE IV Last administered on 01/20/17 00:23; Start 01/20/17 at 00:15; Stop 01/20/17 at 00:16; Status DC Info (Do NOT chart on this entry -- for MONITORING) 1 each PRN DAILY PRN MC SEE COMMENTS; Start 01/20/17 at 00:15; Stop 01/21/17 at 09:19; Status DC Aspirin 324 mg 324 mg 1X ONCE PO Last administered on 01/20/17 00:46; Start 01/20/17 at 00:15; Stop 01/20/17 at 00:16; Status DC Sodium Chloride (Iv Sodium Chloride 0.9% 1000ml Bag) 1,000 ml @ 1,000 mls/hr 1X ONCE IV Last administered on 01/20/17 01:00; Start 01/20/17 at 01:00; Stop 01/20/17 at 01:59; Status DC Vancomycin HCl (Vanco Per Pharmacy) 1 each PRN DAILY PRN MC SEE COMMENTS Last administered on 01/20/17 10:49; Start 01/20/17 at 01:30 Piperacillin Sod/ Tazobactam Sod 1 each 1 each PRN DAILY PRN MC SEE COMMENTS; Start 01/20/17 at 01:30 Piperacillin Sod/ Tazobactam Sod/ Sodium Chloride (Zosyn/Iv Sodium Chloride 0.9 % 100ml) 100 ml @ 200 mls/hr 1X ONCE IV Last administered on 01/20/17 02:13 ; Start 01/20/17 at 01:30; Stop 01/20/17 at 01:59; Status DC Ondansetron HCl (Zofran) 4 mg PRN Q8HRS PRN IV NAUSEA/VOMITING; Start 01/20/17 at 01:30; Stop 01/20/17 at 10:51; Status DC Morphine Sulfate 4 mg 4 mg PRN Q2HR PRN IV PAIN; Start 01/20/17 at 01:30; Stop 01/21/17 at 01:29; Status DC Sodium Chloride (Iv Sodium Chloride 0.9% 1000ml Bag) 1,000 ml @ 125 mls/hr Q8H IV Last administered on 01/20/17 17:30; Start 01/20/17 at 01:30; Stop at 01:29; Status DC Acetaminophen (Tylenol) 650 mg PRN Q4HRS PRN PO FEVER; Start 01/20/17 at 01:30 ; Stop 01/20/17 at 10:51; Status DC Albuterol/ Ipratropium 3 ml 3 ml RTQID NEB ; Start 01/20/17 at 08:00; Stop 01/20 at 10:52; Status DC Vancomycin HCl 1.75 gm/Sodium Chloride 500 ml @ 250 mls/hr 1X ONCE IV Last administered on 01/20/17 03:35; Start 01/20/17 at 02:30; Stop 01/20/17 at 04:29 ; Status DC Piperacillin Sod/ Tazobactam Sod 4.5 gm/Sodium Chloride 100 ml @ 200 mls/hr Q6HRS IV Last administered on 01/21/17 06:03; Start 01/20/17 at 06:00 Vancomycin HCl/ Sodium Chloride (Iv Sodium Chloride 0.9% 250ml) 250 ml @ 250 mls/hr Q24H IV Last administered on 01/21/17 04:38; Start 01/21/17 at 03:30 Vancomycin HCl 1 each 1 each 1X ONCE MC ; Start 01/22/17 at 03:00; Stop at 03:01 Pamidronate Disodium/Sodium Chloride ([place]/Iv Sodium Chloride 0.9% 250ml) 250 ml @ 83.333 mls/ hr 1X ONCE IV Last administered on 01/20/17 08:31; Start at 07:30; Stop 01/20/17 at 10:29; Status DC Acetaminophen (Tylenol) 325 mg PRN Q6HRS PRN PO MILD PAIN / TEMP; Start at 09:45 Acetaminophen/ Hydrocodone Bitart (Lortab 5/325) 1 tab PRN Q6HRS PRN PO MODERATE TO SEVERE PAIN Last administered on 01/21/17 10:28; Start 01/20/17 at 09:45 Hydralazine HCl (Apresoline) 10 mg PRN Q4HRS PRN IVP ELEVATED BP, SEE COMMENTS ; Start 01/20/17 at 09:45 Ondansetron HCl (Zofran) 4 mg PRN Q8HRS PRN IV NAUSEA/VOMITING; Start 01/20/17 at 09:45 Albuterol Sulfate (Ventolin Neb Soln) 2.5 mg PRN Q4HRS PRN NEB SHORTNESS OF BREATH; Start 01/20/17 at 09:45 Aspirin (Children'S Aspirin) 81 mg DAILY PO Last administered on 01/21/17 09: 18; Start 01/20/17 at 10:00 Digoxin (Lanoxin) 125 mcg DAILY PO Last administered on 01/21/17 08:04; Start 01/20/17 at 10:00 Metoprolol Tartrate (Lopressor) 25 mg DAILY PO Last administered on 01/21/17 08:04; Start 01/20/17 at 10:00 Budesonide (Pulmicort) 0.5 mg RTBID NEB Last administered on 01/21/17 06:06; Start 01/20/17 at 20:00 Albuterol Sulfate (Ventolin Neb Soln) 2.5 mg RTQID NEB Last administered on 06:06; Start 01/20/17 at 12:00 Gadobutrol (Gadavist) 6 mmol 1X ONCE IV Last administered on 01/20/17 12:25; Start 01/20/17 at 12:15; Stop 01/20/17 at 12:16; Status DC Enoxaparin Sodium (Lovenox 40mg Syringe) 40 mg Q24H SQ Last administered on 20:47; Start 01/20/17 at 20:00 Digoxin (Lanoxin) 250 mcg 1X ONCE IV Last administered on 01/21/17 06:30; Start 01/21/17 at 06:30; Stop 01/21/17 at 06:31; Status DC Iohexol (Omnipaque 300 Mg/ml) 60 ml 1X ONCE IV Last administered on 01/21/17 06:30; Start 01/21/17 at 06:30; Stop 01/21/17 at 06:31; Status DC Info 1 each 1 each PRN DAILY PRN MC SEE COMMENTS; Start 01/21/17 at 06:30; Stop 01/23/17 at 06:29 Sodium Chloride (Iv Sodium Chloride 0.9% 1000ml Bag) 1,000 ml @ 125 mls/hr Q8H IV Last administered on 01/21/17 09:22; Start 01/21/17 at 10:00 Magnesium Hydroxide (Milk Of Magnesia) 2,400 mg PRN DAILY PRN PO CONSTIPATION Last administered on 01/21/17 10:28; Start 01/21/17 at 10:15 Active Scripts Active Reported Acetaminophen Pm Caplet (Acetaminophen/Diphenhydramine) 1 Each Tablet 1 Each PO HS Men's Multi-Vitamin (Multivitamin) 1 Each Tablet 1 Each PO DAILY Calcium (Calcium Carbonate) 600 Mg Tablet 600 Mg PO DAILY Vitamin C (Ascorbic Acid) 500 Mg Tablet 500 Mg PO DAILY Children's Aspirin (Aspirin) 81 Mg Tab.chew 81 Mg PO DAILY Breo Ellipta 100-25 Mcg Inh (Fluticasone/Vilanterol) 1 Each Aer.pow.ba 1 Puff IH DAILY Digoxin 125 Mcg Tablet 0.125 Mcg PO DAILY Metoprolol Tartrate 25 Mg Tablet 25 Mg PO DAILY Vitals/I & O Vital Sign - Last 24 Hours 01/20/17 01/20/17 01/20/17 01/20/17 19:45 20:00 20:26 20:31 Temp 97.7 97.7 Pulse 81 Resp 20 B/P 131/76 Pulse Ox 94 95 95 O2 Delivery Room Air Nasal Cannula Nasal Cannula Nasal Cannula O2 Flow Rate 4.0 3.0 3.0 01/20/17 01/21/17 01/21/17 01/21/17 23:15 03:05 04:38 05:38 Temp 98.3 97.9 98.3 97.9 Pulse 91 102 Resp 20 20 B/P 146/90 153/98 Pulse Ox 97 92 O2 Delivery Room Air Nasal Cannula Nasal Cannula O2 Flow Rate 3.0 01/21/17 01/21/17 01/21/17 01/21/17 06:05 06:30 07:00 08:00 Temp 97.4 97.4 Pulse 140 95 Resp 20 B/P 158/90 132/83 Pulse Ox 93 O2 Delivery Nasal Cannula Nasal Cannula Nasal Cannula O2 Flow Rate 4.0 3.0 4.0 01/21/17 01/21/17 01/21/17 01/21/17 08:04 08:04 10:28 11:17 Temp 97.5 97.5 Pulse 95 95 84 Resp 20 B/P 132/83 132/83 150/93 Pulse Ox 93 94 O2 Delivery Nasal Cannula Nasal Cannula O2 Flow Rate 4.0 3.0 Intake and Output 01/20/17 01/20/17 01/21/17 15:00 23:00 07:00 Intake Total 350 ml Output Total 750 ml 600 ml Balance -400 ml -600 ml Nutrition Consultation Dietary Evaluation: Recommendations by RD: Increase Calorie Intake, Protein supplementation Comments: Ensure w/ ice cream bid REC: Appetite Stimulant Expected Outcomes/Goals: to meet > 75% est nutr needs Interpretation of weight loss: >5% in 1 month Malnutrition Findings: Food and Nutrition Intake (Mod: <75% est energy req 7days 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
--- NOTE | 2017-01-21 11:46 | PDOC ---
Subjective: Subjective: Onc f/u- lung cancer Pt fatigued. Denies bony pain. present, together they desire to proceed with hospice. Objective: Vital Signs: Vital Signs Date Time Temp Pulse Resp B/P Pulse Ox O2 Delivery O2 Flow Rate FiO2 01/21/17 11:29 94 Nasal Cannula 3.0 01/21/17 11:17 97.5 84 20 150/93 97.5 Physical Exam: Extremities: No edema General: Alert, Oriented X3, Cooperative, No acute distress, Other (fatigued) Lungs: Other (no resp distress) Psych/Mental Status: Mental status NL, Mood NL Labs/Imaging: Ca improved Bone scan- right 5th rib, left T10 met Mri brain- neg CT A/P today- further bone mets Reviewed outside records summarized below Assessment/Plan A/P: 1. H/o T3N3M0 Stage IIIB SCC of lung, PDL1 High positive diagnosed 08/23, s/p chemoradiation, on Opdivo since 08/24 when experienced recurrence. Now with stage IV disease with osseous mets. 2. 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 D/w pt/ this AM; they desire hospice on [place]. Plan: - Restart IVF until Ca normalizes - OSH DNR in place, changed to DNR here - [facility] care consult to arrange hospice in [place] 25 min from 8:05- 8:30 spent with pt/ this AM reviewing diagnosis, staging , prognosis, tx options, goals of care. MADISON PRADO DO Jan 21, 2017 11:46
--- NOTE | 2017-01-21 13:41 | PDOC ---
CARDIO Progress Notes Date and Time Date of Service 01/21/17 Time of Evaluation 1330 Subjective Subjective: Other (c/o back pain ) Vitals Vitals Vital Signs Date Time Temp Pulse Resp B/P Pulse Ox O2 Delivery O2 Flow Rate FiO2 01/21/17 11:47 Nasal Cannula 4.0 01/21/17 11:29 94 01/21/17 11:17 97.5 84 20 150/93 97.5 Weight Weight [ ] Input and Output Intake and Output Intake and Output 01/21/17 07:00 Intake Total 350 ml Output Total 1350 ml Balance -1000 ml Intake Oral 350 ml Output Urine Total 1350 ml # Bowel Movements 1 Laboratory Labs Laboratory Tests Test 01/21/17 04:55 White Blood Count 11.5x10^3/uL (4.0-11.0) Red Blood Count 4.10x10^6/uL (4.30-5.70) Hemoglobin 12.1g/dL (13.0-17.5) Hematocrit 37.1% (39.0-53.0) Mean Corpuscular Volume 91fL (79-100) Mean Corpuscular Hemoglobin 30pg (25-35) Mean Corpuscular Hemoglobin Concent 33g/dL (31-37) Red Cell Distribution Width 13.8% (11.5-14.5) Platelet Count 135x10^3/uL (140-400) Neutrophils (%) (Auto) 96% (31-73) Lymphocytes (%) (Auto) 1% (24-48) Monocytes (%) (Auto) 3% (0-9) Eosinophils (%) (Auto) 0% (0-3) Basophils (%) (Auto) 0% (0-3) Neutrophils # (Auto) 11.1x10^3uL (1.8-7.7) Lymphocytes # (Auto) 0.1x10^3/uL (1.0-4.8) Monocytes # (Auto) 0.3x10^3/uL (0.0-1.1) Eosinophils # (Auto) 0.0x10^3/uL (0.0-0.7) Basophils # (Auto) 0.0x10^3/uL (0.0-0.2) Sodium Level 145mmol/L (136-145) Potassium Level 4.2mmol/L (3.5-5.1) Chloride Level 105mmol/L (98-107) Carbon Dioxide Level 34mmol/L (21-32) Anion Gap 6 (6-14) Blood Urea Nitrogen 23mg/dL (8-26) Creatinine 1.2mg/dL (0.7-1.3) Estimated GFR (Cockcroft-Gault) 59.5 Glucose Level 111mg/dL (70-99) Calcium Level 11.5mg/dL (8.5-10.1) Microbiology Micro Microbiology 01/20/17 Blood Culture - Preliminary, Resulted NO GROWTH AFTER 1 DAY Physical Exam HEENT: Neck Supple W Full Motion Chest: Symmetric LUNGS: Other (diminished throughout, no wheezes present ) Heart: S1S2, RRR, other (tele: SR rate 80) Abdomen: Soft N/T Extremities: No Edema, No Calf Tenderness Neurology: alert, oriented, follow commands Assessment Assessment 1. Elevated troponin 2. Afib with RVR 3. Acute on chronic hypoxic respiratory failure 4. Lung CA; stage IV with bone mets 5. COPD 6. Hypercalcemia 7. Hypertension 8. Hyperlipidemia Recommendations AFIB with RVR multifactorial given pain and metastatic disease with electrolytes abnormalities. HR responded well to IV dig. Now maintaining SR with controlled rate. Will continue routine dig at 125mcg. Presently on metoprolol tartrate daily; will increase to BID. ASA for stroke prevention. No further OAC with probable brain metastases.Continue supportive care Plan to discharge with Hospice VIKI GARCÍA APRN Jan 21, 2017 13:41
--- NOTE | 2017-01-21 14:27 | PDOC2 ---
PALLIATIVE CARE Palliative Care Note Palliative Care Consult requested by Dr. Gann to assist with discharge planning /hospice Dr. Gann has reviewed medical condition with patient and family. They are able to verbalize good understanding. Patient alert. Complains of pain 8 (0-10) back and upper abdomen. No relief with Loritab given this am. Constipation unrelieved with MOM today. 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 Outside the hospital DNR/DNI form signed by patient. 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 will bring copy for record. Patient retired from [employer]. Plan: Home with Hospice when discharged. Spoke with Kina who will inform physician of above. DME: Bed ,BSC, oxygen, bedside table Olga CHAIDEZ will assist with d/c plans. LISSA ANDREW Jan 21, 2017 14:27
[2017-01-21] MEDS: VANCOMYCIN PER PHARMACY MC PRN (14:28)
[2017-01-21 14:44] VITALS: BP 124/79
[2017-01-21] MEDS: POLYETHYLENE GLYCOL 3350 17 GM PACKET. PO SCH (14:46)
[2017-01-21] MEDS: ONDANSETRON PF 4 MG/2 ML VIAL. IV PRN (17:22)
[2017-01-21 19:35] VITALS: BP 131/81
[2017-01-21] MEDS: ENOXAPARIN 40 MG/0.4 ML DISP.SYRIN. SQ SCH (21:36)
[2017-01-21 22:43] VITALS: BP 140/87
[2017-01-22] MEDS: PIPERACILLIN/TAZOBACTAM 4.5 GM in IV NORMAL SALINE 100ML 100 ML IV SCH ×4 (00:21→18:00)
[2017-01-22 02:44] VITALS: BP 129/84
[2017-01-22] MEDS: HYDROCODONE/APAP 10/325 TABLET. PO PRN ×2 (03:20→12:04)
[2017-01-22] MEDS: IV NORMAL SALINE 1000ML BAG 1,000 ML IV SCH ×3 (03:23→22:11)
[2017-01-22 04:05] LABS: BASO % 0 % (0-3); EOS % 0 % (0-3); HEMATOCRIT 35.4 % (39.0-53.0); HEMOGLOBIN 11.7 g/dL (13.0-17.5); LYMPH # 0.1 x10^3/uL (1.0-4.8); LYMPH % 1 % (24-48); MEAN CORPUSCULAR HEMOGLOBIN 30 pg (25-35); MEAN CORPUSCULAR HGB CONC 33 g/dL (31-37); MEAN CORPUSCULAR VOLUME 91 fL (79-100); MONO % 7 % (0-9); NEUT % 92 % (31-73); PLATELET COUNT 110 x10^3/uL (140-400); WHITE BLOOD COUNT 7.4 x10^3/uL (4.0-11.0)
[2017-01-22 04:24] LABS: CALCIUM 10.3 mg/dL (8.5-10.1); GFR 73.5; POTASSIUM 3.8 mmol/L (3.5-5.1)
[2017-01-22] MEDS: VANCOMYCIN 1 GM in IV NORMAL SALINE 250ML 250 ML IV SCH ×2 (05:16→17:31)
[2017-01-22] MEDS: VANCOMYCIN PER PHARMACY MC PRN (06:15)
[2017-01-22 07:00] VITALS: BP 120/88
[2017-01-22] MEDS: BUDESONIDE 0.5 MG/2 ML NEBU NEB SCH ×2 (07:41→19:56)
[2017-01-22] MEDS: ALBUTEROL SULFATE 2.5 MG/3 ML NEBU. NEB SCH ×4 (07:41→19:56)
[2017-01-22] MEDS: MAGNESIUM HYDROXIDE 2,400 MG/30 ML ORAL.SUSP. PO PRN (08:12)
[2017-01-22] MEDS: POLYETHYLENE GLYCOL 3350 17 GM PACKET. PO SCH (08:12)
[2017-01-22] MEDS: ASPIRIN 81 MG TAB.CHEW PO SCH (08:12)
[2017-01-22] MEDS: METOPROLOL TART IMMED RELEASE 25 MG TABLET PO SCH ×2 (08:13→22:34)
[2017-01-22] MEDS: DIGOXIN 125 MCG TABLET PO SCH (08:13)
--- NOTE | 2017-01-22 10:40 | PDOC ---
PROGRESS NOTES Chief Complaint Chief Complaint 1. Acute on chronic hypoxic respiratory failure. improving. 2. Hypercalcemia, related to malignancy. 3. Elevated troponin. 4. 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 5. Pneumonia Plan continue abx for now Zosyn and vancomycin Pharmacy to dose vancomycin supplemental oxygen Hospice evaluation Nii d/w at bedside. no acute changes. supportive care Prognosis poor. History of Present Illness History of Present Illness no fever no chills better than yesterday Vitals Vitals Vital Signs Date Time Temp Pulse Resp B/P Pulse Ox O2 Delivery O2 Flow Rate FiO2 01/22/17 08:13 83 129/84 01/22/17 07:51 Nasal Cannula 4.0 01/22/17 07:43 92 01/22/17 07:00 97.6 20 97.6 Physical Exam General: Alert, Cooperative, No acute distress, Other (sleepy ) Heart: Regular rate, Normal S1, Normal S2, Other (2/6 systolic murmur ) Lungs: Crackles Abdomen: Soft, No tenderness Extremities: No edema Skin: No breakdown, No significant lesion Labs LABS Laboratory Tests Test 01/21/17 20:30 01/22/17 03:43 Hemoglobin 12.6g/dL (13.0-17.5) 11.7g/dL (13.0-17.5) White Blood Count 7.4x10^3/uL (4.0-11.0) Red Blood Count 3.90x10^6/uL (4.30-5.70) Hematocrit 35.4% (39.0-53.0) Mean Corpuscular Volume 91fL (79-100) Mean Corpuscular Hemoglobin 30pg (25-35) Mean Corpuscular Hemoglobin Concent 33g/dL (31-37) Red Cell Distribution Width 14.0% (11.5-14.5) Platelet Count 110x10^3/uL (140-400) Neutrophils (%) (Auto) 92% (31-73) Lymphocytes (%) (Auto) 1% (24-48) Monocytes (%) (Auto) 7% (0-9) Eosinophils (%) (Auto) 0% (0-3) Basophils (%) (Auto) 0% (0-3) Neutrophils # (Auto) 6.8x10^3uL (1.8-7.7) Lymphocytes # (Auto) 0.1x10^3/uL (1.0-4.8) Monocytes # (Auto) 0.5x10^3/uL (0.0-1.1) Eosinophils # (Auto) 0.0x10^3/uL (0.0-0.7) Basophils # (Auto) 0.0x10^3/uL (0.0-0.2) Sodium Level 144mmol/L (136-145) Potassium Level 3.8mmol/L (3.5-5.1) Chloride Level 106mmol/L (98-107) Carbon Dioxide Level 33mmol/L (21-32) Anion Gap 5 (6-14) Blood Urea Nitrogen 19mg/dL (8-26) Creatinine 1.0mg/dL (0.7-1.3) Estimated GFR (Cockcroft-Gault) 73.5 Glucose Level 100mg/dL (70-99) Calcium Level 10.3mg/dL (8.5-10.1) Vancomycin Level Trough 5.7mcg/mL (10.0-20.0) Vancomycin Last Dose Date Vancomycin Last Dose Time 329 Assessment and Plan Assessmemt and Plan Problems Medical Problems: (1) Acute and chronic respiratory failure with hypoxia Status: Acute (2) Hypercalcemia Status: Acute (3) Hypoxia Status: Acute (4) SOB (shortness of breath) Status: Acute Problems: Comment Review of Relevant I have reviewed the following items maria alejandra (where applicable) has been applied. Labs Laboratory Tests Test 01/20/17 13:23 01/21/17 04:55 01/21/17 20:30 01/22/17 03:43 Sodium Level 145mmol/L (136-145) 145mmol/L (136-145) 144mmol/L (136-145) Potassium Level 4.6mmol/L (3.5-5.1) 4.2mmol/L (3.5-5.1) 3.8mmol/L (3.5-5.1) Chloride Level 106mmol/L (98-107) 105mmol/L (98-107) 106mmol/L (98-107) Carbon Dioxide Level 34mmol/L (21-32) 34mmol/L (21-32) 33mmol/L (21-32) Anion Gap 5 (6-14) 6 (6-14) 5 (6-14) Blood Urea Nitrogen 23mg/dL (8-26) 23mg/dL (8-26) 19mg/dL (8-26) Creatinine 1.4mg/dL (0.7-1.3) 1.2mg/dL (0.7-1.3) 1.0mg/dL (0.7-1.3) Estimated GFR (Cockcroft-Gault) 49.8 59.5 73.5 Glucose Level 147mg/dL (70-99) 111mg/dL (70-99) 100mg/dL (70-99) Calcium Level 12.7mg/dL (8.5-10.1) 11.5mg/dL (8.5-10.1) 10.3mg/dL (8.5-10.1) Ionized Calcium 1.78mmol/L (1.13-1.32) Troponin I Quantitative 0.167ng/mL (0.000-0.055) Albumin 2.8g/dL (3.4-5.0) White Blood Count 11.5x10^3/uL (4.0-11.0) 7.4x10^3/uL (4.0-11.0) Red Blood Count 4.10x10^6/uL (4.30-5.70) 3.90x10^6/uL (4.30-5.70) Hemoglobin 12.1g/dL (13.0-17.5) 12.6g/dL (13.0-17.5) 11.7g/dL (13.0-17.5) Hematocrit 37.1% (39.0-53.0) 35.4% (39.0-53.0) Mean Corpuscular Volume 91fL (79-100) 91fL (79-100) Mean Corpuscular Hemoglobin 30pg (25-35) 30pg (25-35) Mean Corpuscular Hemoglobin Concent 33g/dL (31-37) 33g/dL (31-37) Red Cell Distribution Width 13.8% (11.5-14.5) 14.0% (11.5-14.5) Platelet Count 135x10^3/uL (140-400) 110x10^3/uL (140-400) Neutrophils (%) (Auto) 96% (31-73) 92% (31-73) Lymphocytes (%) (Auto) 1% (24-48) 1% (24-48) Monocytes (%) (Auto) 3% (0-9) 7% (0-9) Eosinophils (%) (Auto) 0% (0-3) 0% (0-3) Basophils (%) (Auto) 0% (0-3) 0% (0-3) Neutrophils # (Auto) 11.1x10^3uL (1.8-7.7) 6.8x10^3uL (1.8-7.7) Lymphocytes # (Auto) 0.1x10^3/uL (1.0-4.8) 0.1x10^3/uL (1.0-4.8) Monocytes # (Auto) 0.3x10^3/uL (0.0-1.1) 0.5x10^3/uL (0.0-1.1) Eosinophils # (Auto) 0.0x10^3/uL (0.0-0.7) 0.0x10^3/uL (0.0-0.7) Basophils # (Auto) 0.0x10^3/uL (0.0-0.2) 0.0x10^3/uL (0.0-0.2) Vancomycin Level Trough 5.7mcg/mL (10.0-20.0) Vancomycin Last Dose Date [id number] Vancomycin Last Dose Time 033 Laboratory Tests Test 01/21/17 20:30 01/22/17 03:43 Hemoglobin 12.6g/dL (13.0-17.5) 11.7g/dL (13.0-17.5) White Blood Count 7.4x10^3/uL (4.0-11.0) Red Blood Count 3.90x10^6/uL (4.30-5.70) Hematocrit 35.4% (39.0-53.0) Mean Corpuscular Volume 91fL (79-100) Mean Corpuscular Hemoglobin 30pg (25-35) Mean Corpuscular Hemoglobin Concent 33g/dL (31-37) Red Cell Distribution Width 14.0% (11.5-14.5) Platelet Count 110x10^3/uL (140-400) Neutrophils (%) (Auto) 92% (31-73) Lymphocytes (%) (Auto) 1% (24-48) Monocytes (%) (Auto) 7% (0-9) Eosinophils (%) (Auto) 0% (0-3) Basophils (%) (Auto) 0% (0-3) Neutrophils # (Auto) 6.8x10^3uL (1.8-7.7) Lymphocytes # (Auto) 0.1x10^3/uL (1.0-4.8) Monocytes # (Auto) 0.5x10^3/uL (0.0-1.1) Eosinophils # (Auto) 0.0x10^3/uL (0.0-0.7) Basophils # (Auto) 0.0x10^3/uL (0.0-0.2) Sodium Level 144mmol/L (136-145) Potassium Level 3.8mmol/L (3.5-5.1) Chloride Level 106mmol/L (98-107) Carbon Dioxide Level 33mmol/L (21-32) Anion Gap 5 (6-14) Blood Urea Nitrogen 19mg/dL (8-26) Creatinine 1.0mg/dL (0.7-1.3) Estimated GFR (Cockcroft-Gault) 73.5 Glucose Level 100mg/dL (70-99) Calcium Level 10.3mg/dL (8.5-10.1) Vancomycin Level Trough 5.7mcg/mL (10.0-20.0) Vancomycin Last Dose Date Vancomycin Last Dose Time 329 Microbiology 01/20/17 Blood Culture - Preliminary, Resulted NO GROWTH AFTER 2 DAYS Medications Current Medications Sodium Chloride (Iv Sodium Chloride 0.9% 1000ml Bag) 1,000 ml @ 1,000 mls/hr Q1H IV Last administered on 01/19/17 23:50; Start 01/19/17 at 23:45; Stop at 00:44; Status DC Albuterol/ Ipratropium (Duoneb) 3 ml 1X ONCE NEB Last administered on 00:39; Start 01/19/17 at 23:45; Stop 01/19/17 at 23:46; Status DC Prednisone (Prednisone) 60 mg 1X ONCE PO Last administered on 01/20/17 00:07 ; Start 01/19/17 at 23:45; Stop 01/19/17 at 23:46; Status DC Prochlorperazine Edisylate (Compazine) 10 mg 1X ONCE IV Last administered on 23:58; Start 01/19/17 at 23:45; Stop 01/19/17 at 23:46; Status DC Acetaminophen (Tylenol) 650 mg 1X ONCE PO Last administered on 01/20/17 00:07 ; Start 01/19/17 at 23:45; Stop 01/19/17 at 23:46; Status DC Iohexol (Omnipaque 300 Mg/ml) 75 ml 1X ONCE IV Last administered on 01/20/17 00:23; Start 01/20/17 at 00:15; Stop 01/20/17 at 00:16; Status DC Info (Do NOT chart on this entry -- for MONITORING) 1 each PRN DAILY PRN MC SEE COMMENTS; Start 01/20/17 at 00:15; Stop 01/21/17 at 09:19; Status DC Aspirin 324 mg 324 mg 1X ONCE PO Last administered on 01/20/17 00:46; Start 01/20/17 at 00:15; Stop 01/20/17 at 00:16; Status DC Sodium Chloride (Iv Sodium Chloride 0.9% 1000ml Bag) 1,000 ml @ 1,000 mls/hr 1X ONCE IV Last administered on 01/20/17 01:00; Start 01/20/17 at 01:00; Stop 01/20/17 at 01:59; Status DC Vancomycin HCl (Vanco Per Pharmacy) 1 each PRN DAILY PRN MC SEE COMMENTS Last administered on 01/22/17 06:15; Start 01/20/17 at 01:30 Piperacillin Sod/ Tazobactam Sod 1 each 1 each PRN DAILY PRN MC SEE COMMENTS; Start 01/20/17 at 01:30 Piperacillin Sod/ Tazobactam Sod/ Sodium Chloride (Zosyn/Iv Sodium Chloride 0.9 % 100ml) 100 ml @ 200 mls/hr 1X ONCE IV Last administered on 01/20/17 02:13 ; Start 01/20/17 at 01:30; Stop 01/20/17 at 01:59; Status DC Ondansetron HCl (Zofran) 4 mg PRN Q8HRS PRN IV NAUSEA/VOMITING; Start 01/20/17 at 01:30; Stop 01/20/17 at 10:51; Status DC Morphine Sulfate 4 mg 4 mg PRN Q2HR PRN IV PAIN; Start 01/20/17 at 01:30; Stop 01/21/17 at 01:29; Status DC Sodium Chloride (Iv Sodium Chloride 0.9% 1000ml Bag) 1,000 ml @ 125 mls/hr Q8H IV Last administered on 01/20/17 17:30; Start 01/20/17 at 01:30; Stop at 01:29; Status DC Acetaminophen (Tylenol) 650 mg PRN Q4HRS PRN PO FEVER; Start 01/20/17 at 01:30 ; Stop 01/20/17 at 10:51; Status DC Albuterol/ Ipratropium 3 ml 3 ml RTQID NEB ; Start 01/20/17 at 08:00; Stop 01/20 at 10:52; Status DC Vancomycin HCl 1.75 gm/Sodium Chloride 500 ml @ 250 mls/hr 1X ONCE IV Last administered on 01/20/17 03:35; Start 01/20/17 at 02:30; Stop 01/20/17 at 04:29 ; Status DC Piperacillin Sod/ Tazobactam Sod 4.5 gm/Sodium Chloride 100 ml @ 200 mls/hr Q6HRS IV Last administered on 01/22/17 06:00; Start 01/20/17 at 06:00 Vancomycin HCl/ Sodium Chloride (Iv Sodium Chloride 0.9% 250ml) 250 ml @ 250 mls/hr Q24H IV Last administered on 01/22/17 05:16; Start 01/21/17 at 03:30; Stop 01/22/17 at 07:00; Status DC Vancomycin HCl 1 each 1 each 1X ONCE MC Last administered on 01/22/17 03:00; Start 01/22/17 at 03:00; Stop 01/22/17 at 03:01; Status DC Pamidronate Disodium/Sodium Chloride (Aredia/Iv Sodium Chloride 0.9% 250ml) 250 ml @ 83.333 mls/ hr 1X ONCE IV Last administered on 01/20/17 08:31; Start at 07:30; Stop 01/20/17 at 10:29; Status DC Acetaminophen (Tylenol) 325 mg PRN Q6HRS PRN PO MILD PAIN / TEMP; Start at 09:45 Acetaminophen/ Hydrocodone Bitart (Lortab 5/325) 1 tab PRN Q6HRS PRN PO MODERATE TO SEVERE PAIN Last administered on 01/21/17 10:28; Start 01/20/17 at 09:45; Stop 01/21/17 at 13:59; Status DC Hydralazine HCl (Apresoline) 10 mg PRN Q4HRS PRN IVP ELEVATED BP, SEE COMMENTS ; Start 01/20/17 at 09:45 Ondansetron HCl (Zofran) 4 mg PRN Q8HRS PRN IV NAUSEA/VOMITING Last administered on 01/21/17 17:22; Start 01/20/17 at 09:45 Albuterol Sulfate (Ventolin Neb Soln) 2.5 mg PRN Q4HRS PRN NEB SHORTNESS OF BREATH Last administered on 01/22/17 03:35; Start 01/20/17 at 09:45 Aspirin (Children'S Aspirin) 81 mg DAILY PO Last administered on 01/22/17 08: 12; Start 01/20/17 at 10:00 Digoxin (Lanoxin) 125 mcg DAILY PO Last administered on 01/22/17 08:13; Start 01/20/17 at 10:00 Metoprolol Tartrate (Lopressor) 25 mg DAILY PO Last administered on 01/21/17 08:04; Start 01/20/17 at 10:00; Stop 01/21/17 at 15:07; Status DC Budesonide (Pulmicort) 0.5 mg RTBID NEB Last administered on 01/22/17 07:41; Start 01/20/17 at 20:00 Albuterol Sulfate (Ventolin Neb Soln) 2.5 mg RTQID NEB Last administered on 07:41; Start 01/20/17 at 12:00 Gadobutrol (Gadavist) 6 mmol 1X ONCE IV Last administered on 01/20/17 12:25; Start 01/20/17 at 12:15; Stop 01/20/17 at 12:16; Status DC Enoxaparin Sodium (Lovenox 40mg Syringe) 40 mg Q24H SQ Last administered on 21:36; Start 01/20/17 at 20:00 Digoxin (Lanoxin) 250 mcg 1X ONCE IV Last administered on 01/21/17 06:30; Start 01/21/17 at 06:30; Stop 01/21/17 at 06:31; Status DC Iohexol (Omnipaque 300 Mg/ml) 60 ml 1X ONCE IV Last administered on 01/21/17 06:30; Start 01/21/17 at 06:30; Stop 01/21/17 at 06:31; Status DC Info 1 each 1 each PRN DAILY PRN MC SEE COMMENTS; Start 01/21/17 at 06:30; Stop 01/23/17 at 06:29 Sodium Chloride (Iv Sodium Chloride 0.9% 1000ml Bag) 1,000 ml @ 125 mls/hr Q8H IV Last administered on 01/22/17 03:23; Start 01/21/17 at 10:00 Magnesium Hydroxide (Milk Of Magnesia) 2,400 mg PRN DAILY PRN PO CONSTIPATION Last administered on 01/22/17 08:12; Start 01/21/17 at 10:15 Acetaminophen/ Hydrocodone Bitart (Lortab 10/325) 1 tab PRN Q4HRS PRN PO PAIN Last administered on 01/22/17 03:20; Start 01/21/17 at 14:00 Polyethylene Glycol (miraLAX PACKET) 17 gm DAILY PO Last administered on 08:12; Start 01/21/17 at 14:30 Metoprolol Tartrate 25 mg 25 mg BID PO Last administered on 01/22/17 08:13; Start 01/21/17 at 21:00 Vancomycin HCl/ Sodium Chloride (Iv Sodium Chloride 0.9% 250ml) 250 ml @ 250 mls/hr Q12H IV ; Start 01/22/17 at 18:00 Active Scripts Active Reported Acetaminophen Pm Caplet (Acetaminophen/Diphenhydramine) 1 Each Tablet 1 Each PO HS Men's Multi-Vitamin (Multivitamin) 1 Each Tablet 1 Each PO DAILY Calcium (Calcium Carbonate) 600 Mg Tablet 600 Mg PO DAILY Vitamin C (Ascorbic Acid) 500 Mg Tablet 500 Mg PO DAILY Children's Aspirin (Aspirin) 81 Mg Tab.chew 81 Mg PO DAILY Breo Ellipta 100-25 Mcg Inh (Fluticasone/Vilanterol) 1 Each Aer.pow.ba 1 Puff IH DAILY Digoxin 125 Mcg Tablet 0.125 Mcg PO DAILY Metoprolol Tartrate 25 Mg Tablet 25 Mg PO DAILY Vitals/I & O Vital Sign - Last 24 Hours 01/21/17 01/21/17 01/21/17 01/21/17 11:17 11:29 11:47 14:44 Temp 97.5 98.4 97.5 98.4 Pulse 84 79 Resp 20 20 B/P 150/93 124/79 Pulse Ox 94 94 95 O2 Delivery Nasal Cannula Nasal Cannula Nasal Cannula Nasal Cannula O2 Flow Rate 3.0 3.0 4.0 3.0 01/21/17 01/21/17 01/21/17 01/21/17 16:23 19:35 20:00 21:35 Temp 98.9 98.9 Pulse 92 86 Resp 18 B/P 131/81 128/77 Pulse Ox 91 O2 Delivery Nasal Cannula Nasal Cannula Nasal Cannula O2 Flow Rate 4.0 4.0 4.0 01/21/17 01/22/17 01/22/17 01/22/17 22:43 02:44 03:20 03:36 Temp 98.0 98.4 98.0 98.4 Pulse 94 83 Resp 18 18 19 B/P 140/87 129/84 Pulse Ox 90 90 95 O2 Delivery Nasal Cannula Nasal Cannula Nasal Cannula Nasal Cannula O2 Flow Rate 3.0 3.0 4.0 4.0 01/22/17 01/22/17 01/22/17 01/22/17 04:20 07:00 07:43 07:51 Temp 97.6 97.6 Pulse 98 Resp 21 20 B/P 120/88 Pulse Ox 92 92 O2 Delivery Nasal Cannula Nasal Cannula Nasal Cannula Nasal Cannula O2 Flow Rate 4.0 2.0 4.0 4.0 01/22/17 01/22/17 08:13 08:13 Pulse 120 83 B/P 129/84 129/84 Intake and Output 301/21/17 01/22/17 15:00 23:00 07:00 Intake Total 460 ml 300 ml Output Total 150 ml Balance 460 ml -150 ml 300 ml Nutrition Consultation Dietary Evaluation: Recommendations by RD: Increase Calorie Intake, Protein supplementation Comments: Ensure w/ ice cream bid REC: Appetite Stimulant Expected Outcomes/Goals: to meet > 75% est nutr needs Interpretation of weight loss: >5% in 1 month Malnutrition Findings: Food and Nutrition Intake (Mod: <75% est energy req 7days Reduced Conche Loader And Unloader Strength: N/A Weight Status: Appropriate Fluid Accumulation (N/A): N/A AKI XIONG MD Jan 22, 2017 10:40
[2017-01-22 10:49] VITALS: BP 123/80
--- NOTE | 2017-01-22 11:19 | PDOC ---
PULMONARY PROGRESS NOTES Subjective pt coughing up some blood Vitals Vital Signs Date Time Temp Pulse Resp B/P Pulse Ox O2 Delivery O2 Flow Rate FiO2 01/22/17 10:49 97.6 82 20 123/80 90 Nasal Cannula 4.0 97.6 ROS: No Nausea, No Chest Pain, No Abdominal Pain, No Increase Cough General: Alert Lungs: Crackles Cardiovascular: S1, S2 Abdomen: Soft, Non-tender Neuro Exam: Alert Extremities: No Edema Skin: Warm Labs Laboratory Tests Test 01/20/17 13:23 01/21/17 04:55 01/21/17 20:30 01/22/17 03:43 Sodium Level 145mmol/L (136-145) 145mmol/L (136-145) 144mmol/L (136-145) Potassium Level 4.6mmol/L (3.5-5.1) 4.2mmol/L (3.5-5.1) 3.8mmol/L (3.5-5.1) Chloride Level 106mmol/L (98-107) 105mmol/L (98-107) 106mmol/L (98-107) Carbon Dioxide Level 34mmol/L (21-32) 34mmol/L (21-32) 33mmol/L (21-32) Anion Gap 5 (6-14) 6 (6-14) 5 (6-14) Blood Urea Nitrogen 23mg/dL (8-26) 23mg/dL (8-26) 19mg/dL (8-26) Creatinine 1.4mg/dL (0.7-1.3) 1.2mg/dL (0.7-1.3) 1.0mg/dL (0.7-1.3) Estimated GFR (Cockcroft-Gault) 49.8 59.5 73.5 Glucose Level 147mg/dL (70-99) 111mg/dL (70-99) 100mg/dL (70-99) Calcium Level 12.7mg/dL (8.5-10.1) 11.5mg/dL (8.5-10.1) 10.3mg/dL (8.5-10.1) Ionized Calcium 1.78mmol/L (1.13-1.32) Troponin I Quantitative 0.167ng/mL (0.000-0.055) Albumin 2.8g/dL (3.4-5.0) White Blood Count 11.5x10^3/uL (4.0-11.0) 7.4x10^3/uL (4.0-11.0) Red Blood Count 4.10x10^6/uL (4.30-5.70) 3.90x10^6/uL (4.30-5.70) Hemoglobin 12.1g/dL (13.0-17.5) 12.6g/dL (13.0-17.5) 11.7g/dL (13.0-17.5) Hematocrit 37.1% (39.0-53.0) 35.4% (39.0-53.0) Mean Corpuscular Volume 91fL (79-100) 91fL (79-100) Mean Corpuscular Hemoglobin 30pg (25-35) 30pg (25-35) Mean Corpuscular Hemoglobin Concent 33g/dL (31-37) 33g/dL (31-37) Red Cell Distribution Width 13.8% (11.5-14.5) 14.0% (11.5-14.5) Platelet Count 135x10^3/uL (140-400) 110x10^3/uL (140-400) Neutrophils (%) (Auto) 96% (31-73) 92% (31-73) Lymphocytes (%) (Auto) 1% (24-48) 1% (24-48) Monocytes (%) (Auto) 3% (0-9) 7% (0-9) Eosinophils (%) (Auto) 0% (0-3) 0% (0-3) Basophils (%) (Auto) 0% (0-3) 0% (0-3) Neutrophils # (Auto) 11.1x10^3uL (1.8-7.7) 6.8x10^3uL (1.8-7.7) Lymphocytes # (Auto) 0.1x10^3/uL (1.0-4.8) 0.1x10^3/uL (1.0-4.8) Monocytes # (Auto) 0.3x10^3/uL (0.0-1.1) 0.5x10^3/uL (0.0-1.1) Eosinophils # (Auto) 0.0x10^3/uL (0.0-0.7) 0.0x10^3/uL (0.0-0.7) Basophils # (Auto) 0.0x10^3/uL (0.0-0.2) 0.0x10^3/uL (0.0-0.2) Vancomycin Level Trough 5.7mcg/mL (10.0-20.0) Vancomycin Last Dose Date [id number] Vancomycin Last Dose Time 033 Laboratory Tests Test 01/21/17 20:30 01/22/17 03:43 Hemoglobin 12.6g/dL (13.0-17.5) 11.7g/dL (13.0-17.5) White Blood Count 7.4x10^3/uL (4.0-11.0) Red Blood Count 3.90x10^6/uL (4.30-5.70) Hematocrit 35.4% (39.0-53.0) Mean Corpuscular Volume 91fL (79-100) Mean Corpuscular Hemoglobin 30pg (25-35) Mean Corpuscular Hemoglobin Concent 33g/dL (31-37) Red Cell Distribution Width 14.0% (11.5-14.5) Platelet Count 110x10^3/uL (140-400) Neutrophils (%) (Auto) 92% (31-73) Lymphocytes (%) (Auto) 1% (24-48) Monocytes (%) (Auto) 7% (0-9) Eosinophils (%) (Auto) 0% (0-3) Basophils (%) (Auto) 0% (0-3) Neutrophils # (Auto) 6.8x10^3uL (1.8-7.7) Lymphocytes # (Auto) 0.1x10^3/uL (1.0-4.8) Monocytes # (Auto) 0.5x10^3/uL (0.0-1.1) Eosinophils # (Auto) 0.0x10^3/uL (0.0-0.7) Basophils # (Auto) 0.0x10^3/uL (0.0-0.2) Sodium Level 144mmol/L (136-145) Potassium Level 3.8mmol/L (3.5-5.1) Chloride Level 106mmol/L (98-107) Carbon Dioxide Level 33mmol/L (21-32) Anion Gap 5 (6-14) Blood Urea Nitrogen 19mg/dL (8-26) Creatinine 1.0mg/dL (0.7-1.3) Estimated GFR (Cockcroft-Gault) 73.5 Glucose Level 100mg/dL (70-99) Calcium Level 10.3mg/dL (8.5-10.1) Vancomycin Level Trough 5.7mcg/mL (10.0-20.0) Vancomycin Last Dose Date Vancomycin Last Dose Time 329 Medications Active Scripts Medications Dose Route/Sig Days Date Category Acetaminophen Pm Caplet (Acetaminophen/Diphenhydramine) 1 Each Tablet 1 Each PO HS 01/20/17 Reported Men's Multi-Vitamin (Multivitamin) 1 Each Tablet 1 Each PO DAILY 01/20/17 Reported Calcium (Calcium Carbonate) 600 Mg Tablet 600 Mg PO DAILY 01/20/17 Reported Vitamin C (Ascorbic Acid) 500 Mg Tablet 500 Mg PO DAILY 01/20/17 Reported Children's Aspirin (Aspirin) 81 Mg Tab.chew 81 Mg PO DAILY 01/20/17 Reported Breo Ellipta 100-25 Mcg Inh (Fluticasone/Vilanterol) 1 Each Aer.pow.ba 1 Puff IH DAILY 01/20/17 Reported Digoxin 125 Mcg Tablet 0.125 Mcg PO DAILY 01/20/17 Reported Metoprolol Tartrate 25 Mg Tablet 25 Mg PO DAILY 01/20/17 Reported Impression . 1. Acute on chronic respiratory failure, multifactorial. 2. Stage IV lung cancer with evidence of possible recurrence. 3. 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 CT chest, no evidence of pulmonary embolism. 5. COPD. 6. Chest pain, elevated troponin, per Cardiology. 7. Hypertension. 8. Hyperlipidemia. Plan . Pt now contemplating hospice no further hemoptysis 1. antibx and steroid 2. Obtain old films for comparison. 3. Oxygen supplementation. 4. Nebulized treatments. 5. Follow calcium level. 6. Deep venous thrombosis prophylaxis. GELY DANIEL MD Jan 22, 2017 11:19
--- NOTE | 2017-01-22 11:48 | PDOC2 ---
PALLIATIVE CARE Palliative Care Note Palliative Care Patient asleep. Had not rested well last night per staff and . Pain medication increased with more relief of pain. ???Bowel Movement document. Patient reported to staff and no BM. Hypercalcemia improving. Hospice when discharged. LISSA ANDREW Jan 22, 2017 11:48
[2017-01-22] MEDS ORDERED: SORBITOL 70% 30 ML SOLUTION. PO PRN (12:45)
[2017-01-22] MEDS ORDERED: SENNOSIDES/DOCUSATE 8.6/50MG TABLET. PO PRN (12:45)
[2017-01-22] MEDS ORDERED: traZODone 50 MG TABLET. PO PRN (12:45)
--- NOTE | 2017-01-22 12:45 | PDOC ---
Subjective: Subjective: Onc f/u- Lung cancer Pt very fatigued. Not sleeping well. States he is coughing up blood today, cannot tell me how much. Wants hospice. Objective: Vital Signs: Vital Signs Date Time Temp Pulse Resp B/P Pulse Ox O2 Delivery O2 Flow Rate FiO2 01/22/17 12:15 90 Nasal Cannula 4.0 01/22/17 10:49 97.6 82 20 123/80 97.6 Physical Exam: Extremities: No edema General: Alert, Oriented X3, Cooperative, No acute distress, Other (fatigued) Lungs: Other (no resp distress) Psych/Mental Status: Mental status NL, Mood NL Labs/Imaging: Ct A/P- further bony mets, no liver mets Assessment/Plan A/P: 1. Stage IV disease now with osseous mets. D/W his oncologist Dr. Tobar. Agreed with hospice. 2. 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 3. Insomnia- Trazodone prn ordered 4. Constipation. Sennna Janice, sorbitol prn added 5. Hemoptysis, unclear amount- Defer to pulm Appreciate pall care involvement. MADISON PRADO DO Jan 22, 2017 12:45
[2017-01-22 15:00] VITALS: BP 128/84
[2017-01-22] MEDS: LUBIPROSTONE 8 MCG CAPSULE PO SCH (17:29)
[2017-01-22] MEDS: ONDANSETRON PF 4 MG/2 ML VIAL. IV PRN (17:29)
[2017-01-22] MEDS ORDERED: TEMAZEPAM 15 MG CAPSULE PO PRN (19:00)
[2017-01-22 19:53] VITALS: BP 128/87
[2017-01-22] MEDS: ENOXAPARIN 40 MG/0.4 ML DISP.SYRIN. SQ SCH (22:12)
[2017-01-22 23:06] VITALS: BP 151/99
[2017-01-23] MEDS: PIPERACILLIN/TAZOBACTAM 4.5 GM in IV NORMAL SALINE 100ML 100 ML IV SCH ×3 (00:20→12:41)
[2017-01-23 02:41] VITALS: BP 118/70
[2017-01-23] MEDS: HYDROCODONE/APAP 10/325 TABLET. PO PRN ×3 (04:34→16:49)
[2017-01-23] MEDS: IV NORMAL SALINE 1000ML BAG 1,000 ML IV SCH ×3 (05:00→10:00)
[2017-01-23 06:42] LABS: CALCIUM 9.7 mg/dL (8.5-10.1); CREATININE 0.9 mg/dL (0.7-1.3); GFR 82.9
[2017-01-23 07:00] VITALS: BP 123/82
[2017-01-23] MEDS: BUDESONIDE 0.5 MG/2 ML NEBU NEB SCH (08:07)
[2017-01-23] MEDS: ALBUTEROL SULFATE 2.5 MG/3 ML NEBU. NEB SCH ×3 (08:07→16:28)
[2017-01-23] MEDS: VANCOMYCIN 1 GM in IV NORMAL SALINE 250ML 250 ML IV SCH (08:42)
[2017-01-23] MEDS: LUBIPROSTONE 8 MCG CAPSULE PO SCH (08:43)
[2017-01-23] MEDS: METOPROLOL TART IMMED RELEASE 25 MG TABLET PO SCH (08:43)
[2017-01-23 08:44] VITALS: BP 123/82
[2017-01-23] MEDS: DIGOXIN 125 MCG TABLET PO SCH (08:44)
[2017-01-23] MEDS: ASPIRIN 81 MG TAB.CHEW PO SCH (08:44)
[2017-01-23] MEDS: POLYETHYLENE GLYCOL 3350 17 GM PACKET. PO SCH (08:44)
--- NOTE | 2017-01-23 10:13 | PDOC ---
PROGRESS NOTES Chief Complaint Chief Complaint 1. Acute on chronic hypoxic respiratory failure. improving. 2. Hypercalcemia, related to malignancy. 3. Elevated troponin. 4. 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 5. Pneumonia Plan dc abx at DC D/W daughter and at bedside, agree with DC plan Pain control supportive care prognosis very poor. History of Present Illness History of Present Illness no fever no chills better than yesterday Vitals Vitals Vital Signs Date Time Temp Pulse Resp B/P Pulse Ox O2 Delivery O2 Flow Rate FiO2 01/23/17 08:44 83 123/82 01/23/17 08:10 91 Nasal Cannula 4.0 01/23/17 07:00 98.0 24 98.0 Physical Exam General: Alert, No acute distress, Other (fatigued) Heart: Regular rate, Normal S1, Normal S2, Other (2/6 systolic murmur ) Lungs: Crackles Abdomen: Soft, No tenderness Extremities: No edema Skin: No breakdown, No significant lesion Labs LABS Laboratory Tests Test 01/23/17 06:05 Sodium Level 145mmol/L (136-145) Potassium Level 4.0mmol/L (3.5-5.1) Chloride Level 108mmol/L (98-107) Carbon Dioxide Level 33mmol/L (21-32) Anion Gap 4 (6-14) Blood Urea Nitrogen 19mg/dL (8-26) Creatinine 0.9mg/dL (0.7-1.3) Estimated GFR (Cockcroft-Gault) 82.9 Glucose Level 98mg/dL (70-99) Calcium Level 9.7mg/dL (8.5-10.1) Assessment and Plan Assessmemt and Plan Problems Medical Problems: (1) Acute and chronic respiratory failure with hypoxia Status: Acute (2) Hypercalcemia Status: Acute (3) Hypoxia Status: Acute (4) SOB (shortness of breath) Status: Acute Problems: Comment Review of Relevant I have reviewed the following items maria alejandra (where applicable) has been applied. Labs Laboratory Tests Test 01/21/17 20:30 01/22/17 03:43 01/23/17 06:05 Hemoglobin 12.6g/dL (13.0-17.5) 11.7g/dL (13.0-17.5) White Blood Count 7.4x10^3/uL (4.0-11.0) Red Blood Count 3.90x10^6/uL (4.30-5.70) Hematocrit 35.4% (39.0-53.0) Mean Corpuscular Volume 91fL (79-100) Mean Corpuscular Hemoglobin 30pg (25-35) Mean Corpuscular Hemoglobin Concent 33g/dL (31-37) Red Cell Distribution Width 14.0% (11.5-14.5) Platelet Count 110x10^3/uL (140-400) Neutrophils (%) (Auto) 92% (31-73) Lymphocytes (%) (Auto) 1% (24-48) Monocytes (%) (Auto) 7% (0-9) Eosinophils (%) (Auto) 0% (0-3) Basophils (%) (Auto) 0% (0-3) Neutrophils # (Auto) 6.8x10^3uL (1.8-7.7) Lymphocytes # (Auto) 0.1x10^3/uL (1.0-4.8) Monocytes # (Auto) 0.5x10^3/uL (0.0-1.1) Eosinophils # (Auto) 0.0x10^3/uL (0.0-0.7) Basophils # (Auto) 0.0x10^3/uL (0.0-0.2) Sodium Level 144mmol/L (136-145) 145mmol/L (136-145) Potassium Level 3.8mmol/L (3.5-5.1) 4.0mmol/L (3.5-5.1) Chloride Level 106mmol/L (98-107) 108mmol/L (98-107) Carbon Dioxide Level 33mmol/L (21-32) 33mmol/L (21-32) Anion Gap 5 (6-14) 4 (6-14) Blood Urea Nitrogen 19mg/dL (8-26) 19mg/dL (8-26) Creatinine 1.0mg/dL (0.7-1.3) 0.9mg/dL (0.7-1.3) Estimated GFR (Cockcroft-Gault) 73.5 82.9 Glucose Level 100mg/dL (70-99) 98mg/dL (70-99) Calcium Level 10.3mg/dL (8.5-10.1) 9.7mg/dL (8.5-10.1) Vancomycin Level Trough 5.7mcg/mL (10.0-20.0) Vancomycin Last Dose Date Vancomycin Last Dose Time 329 Laboratory Tests Test 01/23/17 06:05 Sodium Level 145mmol/L (136-145) Potassium Level 4.0mmol/L (3.5-5.1) Chloride Level 108mmol/L (98-107) Carbon Dioxide Level 33mmol/L (21-32) Anion Gap 4 (6-14) Blood Urea Nitrogen 19mg/dL (8-26) Creatinine 0.9mg/dL (0.7-1.3) Estimated GFR (Cockcroft-Gault) 82.9 Glucose Level 98mg/dL (70-99) Calcium Level 9.7mg/dL (8.5-10.1) Microbiology 01/20/17 Blood Culture - Preliminary, Resulted NO GROWTH AFTER 3 DAYS Medications Current Medications Sodium Chloride (Iv Sodium Chloride 0.9% 1000ml Bag) 1,000 ml @ 1,000 mls/hr Q1H IV Last administered on 01/19/17 23:50; Start 01/19/17 at 23:45; Stop at 00:44; Status DC Albuterol/ Ipratropium (Duoneb) 3 ml 1X ONCE NEB Last administered on 00:39; Start 01/19/17 at 23:45; Stop 01/19/17 at 23:46; Status DC Prednisone (Prednisone) 60 mg 1X ONCE PO Last administered on 01/20/17 00:07 ; Start 01/19/17 at 23:45; Stop 01/19/17 at 23:46; Status DC Prochlorperazine Edisylate (Compazine) 10 mg 1X ONCE IV Last administered on 23:58; Start 01/19/17 at 23:45; Stop 01/19/17 at 23:46; Status DC Acetaminophen (Tylenol) 650 mg 1X ONCE PO Last administered on 01/20/17 00:07 ; Start 01/19/17 at 23:45; Stop 01/19/17 at 23:46; Status DC Iohexol (Omnipaque 300 Mg/ml) 75 ml 1X ONCE IV Last administered on 01/20/17 00:23; Start 01/20/17 at 00:15; Stop 01/20/17 at 00:16; Status DC Info (Do NOT chart on this entry -- for MONITORING) 1 each PRN DAILY PRN MC SEE COMMENTS; Start 01/20/17 at 00:15; Stop 01/21/17 at 09:19; Status DC Aspirin 324 mg 324 mg 1X ONCE PO Last administered on 01/20/17 00:46; Start 01/20/17 at 00:15; Stop 01/20/17 at 00:16; Status DC Sodium Chloride (Iv Sodium Chloride 0.9% 1000ml Bag) 1,000 ml @ 1,000 mls/hr 1X ONCE IV Last administered on 01/20/17 01:00; Start 01/20/17 at 01:00; Stop 01/20/17 at 01:59; Status DC Vancomycin HCl (Vanco Per Pharmacy) 1 each PRN DAILY PRN MC SEE COMMENTS Last administered on 01/22/17 06:15; Start 01/20/17 at 01:30 Piperacillin Sod/ Tazobactam Sod 1 each 1 each PRN DAILY PRN MC SEE COMMENTS; Start 01/20/17 at 01:30 Piperacillin Sod/ Tazobactam Sod/ Sodium Chloride (Zosyn/Iv Sodium Chloride 0.9 % 100ml) 100 ml @ 200 mls/hr 1X ONCE IV Last administered on 01/20/17 02:13 ; Start 01/20/17 at 01:30; Stop 01/20/17 at 01:59; Status DC Ondansetron HCl (Zofran) 4 mg PRN Q8HRS PRN IV NAUSEA/VOMITING; Start 01/20/17 at 01:30; Stop 01/20/17 at 10:51; Status DC Morphine Sulfate 4 mg 4 mg PRN Q2HR PRN IV PAIN; Start 01/20/17 at 01:30; Stop 01/21/17 at 01:29; Status DC Sodium Chloride (Iv Sodium Chloride 0.9% 1000ml Bag) 1,000 ml @ 125 mls/hr Q8H IV Last administered on 01/20/17 17:30; Start 01/20/17 at 01:30; Stop at 01:29; Status DC Acetaminophen (Tylenol) 650 mg PRN Q4HRS PRN PO FEVER; Start 01/20/17 at 01:30 ; Stop 01/20/17 at 10:51; Status DC Albuterol/ Ipratropium 3 ml 3 ml RTQID NEB ; Start 01/20/17 at 08:00; Stop 01/20 at 10:52; Status DC Vancomycin HCl 1.75 gm/Sodium Chloride 500 ml @ 250 mls/hr 1X ONCE IV Last administered on 01/20/17 03:35; Start 01/20/17 at 02:30; Stop 01/20/17 at 04:29 ; Status DC Piperacillin Sod/ Tazobactam Sod 4.5 gm/Sodium Chloride 100 ml @ 200 mls/hr Q6HRS IV Last administered on 01/23/17 06:12; Start 01/20/17 at 06:00 Vancomycin HCl/ Sodium Chloride (Iv Sodium Chloride 0.9% 250ml) 250 ml @ 250 mls/hr Q24H IV Last administered on 01/22/17 05:16; Start 01/21/17 at 03:30; Stop 01/22/17 at 07:00; Status DC Vancomycin HCl 1 each 1 each 1X ONCE MC Last administered on 01/22/17 03:00; Start 01/22/17 at 03:00; Stop 01/22/17 at 03:01; Status DC Pamidronate Disodium/Sodium Chloride (Aredia/Iv Sodium Chloride 0.9% 250ml) 250 ml @ 83.333 mls/ hr 1X ONCE IV Last administered on 01/20/17 08:31; Start at 07:30; Stop 01/20/17 at 10:29; Status DC Acetaminophen (Tylenol) 325 mg PRN Q6HRS PRN PO MILD PAIN / TEMP; Start at 09:45 Acetaminophen/ Hydrocodone Bitart (Lortab 5/325) 1 tab PRN Q6HRS PRN PO MODERATE TO SEVERE PAIN Last administered on 01/21/17 10:28; Start 01/20/17 at 09:45; Stop 01/21/17 at 13:59; Status DC Hydralazine HCl (Apresoline) 10 mg PRN Q4HRS PRN IVP ELEVATED BP, SEE COMMENTS ; Start 01/20/17 at 09:45 Ondansetron HCl (Zofran) 4 mg PRN Q8HRS PRN IV NAUSEA/VOMITING Last administered on 01/22/17 17:29; Start 01/20/17 at 09:45 Albuterol Sulfate (Ventolin Neb Soln) 2.5 mg PRN Q4HRS PRN NEB SHORTNESS OF BREATH Last administered on 01/22/17 03:35; Start 01/20/17 at 09:45 Aspirin (Children'S Aspirin) 81 mg DAILY PO Last administered on 01/23/17 08: 44; Start 01/20/17 at 10:00 Digoxin (Lanoxin) 125 mcg DAILY PO Last administered on 01/23/17 08:44; Start 01/20/17 at 10:00 Metoprolol Tartrate (Lopressor) 25 mg DAILY PO Last administered on 01/21/17 08:04; Start 01/20/17 at 10:00; Stop 01/21/17 at 15:07; Status DC Budesonide (Pulmicort) 0.5 mg RTBID NEB Last administered on 01/23/17 08:07; Start 01/20/17 at 20:00 Albuterol Sulfate (Ventolin Neb Soln) 2.5 mg RTQID NEB Last administered on 08:07; Start 01/20/17 at 12:00 Gadobutrol (Gadavist) 6 mmol 1X ONCE IV Last administered on 01/20/17 12:25; Start 01/20/17 at 12:15; Stop 01/20/17 at 12:16; Status DC Enoxaparin Sodium (Lovenox 40mg Syringe) 40 mg Q24H SQ Last administered on 22:12; Start 01/20/17 at 20:00 Digoxin (Lanoxin) 250 mcg 1X ONCE IV Last administered on 01/21/17 06:30; Start 01/21/17 at 06:30; Stop 01/21/17 at 06:31; Status DC Iohexol (Omnipaque 300 Mg/ml) 60 ml 1X ONCE IV Last administered on 01/21/17 06:30; Start 01/21/17 at 06:30; Stop 01/21/17 at 06:31; Status DC Info 1 each 1 each PRN DAILY PRN MC SEE COMMENTS; Start 01/21/17 at 06:30; Stop 01/23/17 at 06:29; Status DC Sodium Chloride (Iv Sodium Chloride 0.9% 1000ml Bag) 1,000 ml @ 125 mls/hr Q8H IV Last administered on 01/23/17 08:41; Start 01/21/17 at 10:00 Magnesium Hydroxide (Milk Of Magnesia) 2,400 mg PRN DAILY PRN PO CONSTIPATION Last administered on 01/22/17 08:12; Start 01/21/17 at 10:15 Acetaminophen/ Hydrocodone Bitart (Lortab 10/325) 1 tab PRN Q4HRS PRN PO PAIN Last administered on 01/23/17 04:34; Start 01/21/17 at 14:00 Polyethylene Glycol (miraLAX PACKET) 17 gm DAILY PO Last administered on 08:44; Start 01/21/17 at 14:30 Metoprolol Tartrate 25 mg 25 mg BID PO Last administered on 01/23/17 08:43; Start 01/21/17 at 21:00 Vancomycin HCl/ Sodium Chloride (Iv Sodium Chloride 0.9% 250ml) 250 ml @ 250 mls/hr Q12H IV Last administered on 01/23/17 08:42; Start 01/22/17 at 18:00 Lubiprostone (Amitiza) 8 mcg BIDWMEALS PO Last administered on 01/23/17 08:43 ; Start 01/22/17 at 17:00 Trazodone HCl (Desyrel) 50 mg PRN QHS PRN PO INSOMNIA Last administered on 01/22 22:30; Start 01/22/17 at 12:45 Sorbitol 30 ml PRN Q4HRS PRN PO CONSTIPATION 2ND CHOICE; Start 01/22/17 at 12: 45 Senna/Docusate Sodium (Senna Plus) 2 tab PRN BID PRN PO CONSTIPATION; Start at 12:45 Temazepam (Restoril) 15 mg PRN QHS PRN PO INSOMNIA; Start 01/22/17 at 19:00 Dronabinol (Marinol) 2.5 mg BIDACLD PO ; Start 01/23/17 at 11:30 Active Scripts Active Reported Acetaminophen Pm Caplet (Acetaminophen/Diphenhydramine) 1 Each Tablet 1 Each PO HS Men's Multi-Vitamin (Multivitamin) 1 Each Tablet 1 Each PO DAILY Calcium (Calcium Carbonate) 600 Mg Tablet 600 Mg PO DAILY Vitamin C (Ascorbic Acid) 500 Mg Tablet 500 Mg PO DAILY Children's Aspirin (Aspirin) 81 Mg Tab.chew 81 Mg PO DAILY Breo Ellipta 100-25 Mcg Inh (Fluticasone/Vilanterol) 1 Each Aer.pow.ba 1 Puff IH DAILY Digoxin 125 Mcg Tablet 0.125 Mcg PO DAILY Metoprolol Tartrate 25 Mg Tablet 25 Mg PO DAILY Vitals/I & O Vital Sign - Last 24 Hours 01/22/17 01/22/17 01/22/17 01/22/17 10:49 12:04 12:15 14:41 Temp 97.6 97.6 Pulse 82 Resp 20 B/P 123/80 Pulse Ox 90 90 90 90 O2 Delivery Nasal Cannula Nasal Cannula Nasal Cannula O2 Flow Rate 4.0 4.0 4.0 01/22/17 01/22/17 01/22/17 01/22/17 15:00 16:11 19:53 19:55 Temp 98.1 98.0 98.1 98.0 Pulse 78 86 Resp 20 18 B/P 128/84 128/87 Pulse Ox 96 92 O2 Delivery Nasal Cannula Nasal Cannula Nasal Cannula Nasal Cannula O2 Flow Rate 4.0 4.0 4.0 01/22/17 01/22/17 01/22/17 01/23/17 20:00 22:34 23:06 02:41 Temp 98.0 98.1 98.0 98.1 Pulse 85 87 79 Resp 18 18 B/P 142/91 151/99 118/70 Pulse Ox 93 93 O2 Delivery Nasal Cannula Room Air Nasal Cannula O2 Flow Rate 4.0 01/23/17 01/23/17 01/23/17 01/23/17 04:34 05:34 07:00 08:10 Temp 98.0 98.0 Pulse 83 Resp 19 20 24 B/P 123/82 Pulse Ox 86 91 O2 Delivery Nasal Cannula Nasal Cannula Nasal Cannula Nasal Cannula O2 Flow Rate 4.0 4.0 3.0 4.0 01/23/17 01/23/17 08:43 08:44 Pulse 83 83 B/P 123/82 123/82 Intake and Output 01/22/17 01/22/17 01/23/17 15:00 23:00 07:00 Intake Total 170 ml 1320 ml Output Total 300 ml Balance 170 ml 1020 ml Nutrition Consultation Dietary Evaluation: Recommendations by RD: Increase Calorie Intake, Protein supplementation Comments: Ensure w/ ice cream bid REC: Appetite Stimulant Expected Outcomes/Goals: to meet > 75% est nutr needs Interpretation of weight loss: >5% in 1 month Malnutrition Findings: Food and Nutrition Intake (Mod: <75% est energy req 7days Reduced Grain Picker Strength: N/A Weight Status: Appropriate Fluid Accumulation (N/A): N/A AKI XIONG MD Jan 23, 2017 10:13
--- NOTE | 2017-01-23 10:25 | PDOC ---
Subjective: Subjective: Onc f/u- Lung cancer Slept better. Pain controlled. Fatigued. Reports hemoptysis continues- yesterday per pulm note said it was better. Objective: Vital Signs: Vital Signs Date Time Temp Pulse Resp B/P Pulse Ox O2 Delivery O2 Flow Rate FiO2 01/23/17 08:44 83 123/82 01/23/17 08:10 91 Nasal Cannula 4.0 01/23/17 07:00 98.0 24 98.0 Physical Exam: General: Alert, Oriented X3, Cooperative, No acute distress, Other (very fatigued) Lungs: Other (receving breathing tx, no coughing/ hemoptysis currently) Psych/Mental Status: Mental status NL, Mood NL Labs/Imaging: Ca now normal at 9.7 Assessment/Plan A/P: 1. Stage IV disease now with osseous mets. D/W his oncologist Dr. Tobar. Agreed with hospice. 2. 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 Now normal today. 3. Insomnia- Trazodone prn ordered, improved. 4. Constipation. Sennna Plus, sorbitol prn 5. Hemoptysis with coughing, unclear amount but doesn't sound extreme, pt reports to me still occurring. Defer to pulm. Given hospice plan, recommended codeine for cough suppression. Ok to DC with hospice from my standpoint. Dr. Overton is covering this weekend if acute issues arise; Dr. Leyva will be available next week. MADISON PRADO DO Jan 23, 2017 10:25
--- NOTE | 2017-01-23 10:57 | PDOC2 ---
PALLIATIVE CARE Palliative Care Note Palliative Care Patient asleep. Spoke with . Understands plan to discharge patient today. Called [facility]. They will be here at 11am. Equipment can be delivered between 2 and 4pm and discharge/transportation after equipment in place. Patient rating pain at 8 early this am. Medicated as ordered. Patient had BM this am. Olga CHAIDEZ aware of plan. LISSA ANDREW Jan 23, 2017 10:57
[2017-01-23] MEDS ORDERED: DRONABINOL 2.5 MG CAPSULE PO SCH (11:30)
--- NOTE | 2017-01-23 11:40 | PDOC ---
PULMONARY PROGRESS NOTES Subjective no hemoptysis, has occ cough, sob is better. going home w hospice Vitals Vital Signs Date Time Temp Pulse Resp B/P Pulse Ox O2 Delivery O2 Flow Rate FiO2 01/23/17 11:23 91 Nasal Cannula 4.0 01/23/17 08:44 83 123/82 01/23/17 07:00 98.0 24 98.0 ROS: No Nausea, No Chest Pain, No Abdominal Pain, No Increase Cough General: Alert HEENT: Other (nc at perrl) Lungs: Crackles Cardiovascular: S1, S2 Abdomen: Soft, Non-tender Neuro Exam: Alert Extremities: No Edema Skin: Warm Labs Laboratory Tests Test 01/21/17 20:30 01/22/17 03:43 01/23/17 06:05 Hemoglobin 12.6g/dL (13.0-17.5) 11.7g/dL (13.0-17.5) White Blood Count 7.4x10^3/uL (4.0-11.0) Red Blood Count 3.90x10^6/uL (4.30-5.70) Hematocrit 35.4% (39.0-53.0) Mean Corpuscular Volume 91fL (79-100) Mean Corpuscular Hemoglobin 30pg (25-35) Mean Corpuscular Hemoglobin Concent 33g/dL (31-37) Red Cell Distribution Width 14.0% (11.5-14.5) Platelet Count 110x10^3/uL (140-400) Neutrophils (%) (Auto) 92% (31-73) Lymphocytes (%) (Auto) 1% (24-48) Monocytes (%) (Auto) 7% (0-9) Eosinophils (%) (Auto) 0% (0-3) Basophils (%) (Auto) 0% (0-3) Neutrophils # (Auto) 6.8x10^3uL (1.8-7.7) Lymphocytes # (Auto) 0.1x10^3/uL (1.0-4.8) Monocytes # (Auto) 0.5x10^3/uL (0.0-1.1) Eosinophils # (Auto) 0.0x10^3/uL (0.0-0.7) Basophils # (Auto) 0.0x10^3/uL (0.0-0.2) Sodium Level 144mmol/L (136-145) 145mmol/L (136-145) Potassium Level 3.8mmol/L (3.5-5.1) 4.0mmol/L (3.5-5.1) Chloride Level 106mmol/L (98-107) 108mmol/L (98-107) Carbon Dioxide Level 33mmol/L (21-32) 33mmol/L (21-32) Anion Gap 5 (6-14) 4 (6-14) Blood Urea Nitrogen 19mg/dL (8-26) 19mg/dL (8-26) Creatinine 1.0mg/dL (0.7-1.3) 0.9mg/dL (0.7-1.3) Estimated GFR (Cockcroft-Gault) 73.5 82.9 Glucose Level 100mg/dL (70-99) 98mg/dL (70-99) Calcium Level 10.3mg/dL (8.5-10.1) 9.7mg/dL (8.5-10.1) Vancomycin Level Trough 5.7mcg/mL (10.0-20.0) Vancomycin Last Dose Date [id number] Vancomycin Last Dose Time 033 Laboratory Tests Test 01/23/17 06:05 Sodium Level 145mmol/L (136-145) Potassium Level 4.0mmol/L (3.5-5.1) Chloride Level 108mmol/L (98-107) Carbon Dioxide Level 33mmol/L (21-32) Anion Gap 4 (6-14) Blood Urea Nitrogen 19mg/dL (8-26) Creatinine 0.9mg/dL (0.7-1.3) Estimated GFR (Cockcroft-Gault) 82.9 Glucose Level 98mg/dL (70-99) Calcium Level 9.7mg/dL (8.5-10.1) Medications Active Scripts Medications Dose Route/Sig Days Date Category Acetaminophen Pm Caplet (Acetaminophen/Diphenhydramine) 1 Each Tablet 1 Each PO HS 01/20/17 Reported Men's Multi-Vitamin (Multivitamin) 1 Each Tablet 1 Each PO DAILY 01/20/17 Reported Calcium (Calcium Carbonate) 600 Mg Tablet 600 Mg PO DAILY 01/20/17 Reported Vitamin C (Ascorbic Acid) 500 Mg Tablet 500 Mg PO DAILY 01/20/17 Reported Children's Aspirin (Aspirin) 81 Mg Tab.chew 81 Mg PO DAILY 01/20/17 Reported Breo Ellipta 100-25 Mcg Inh (Fluticasone/Vilanterol) 1 Each Aer.pow.ba 1 Puff IH DAILY 01/20/17 Reported Digoxin 125 Mcg Tablet 0.125 Mcg PO DAILY 01/20/17 Reported Metoprolol Tartrate 25 Mg Tablet 25 Mg PO DAILY 01/20/[address] reviewed, Impression . 1. Acute on chronic respiratory failure, multifactorial. 2. Stage IV lung cancer with evidence of possible recurrence. 3. 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 CT chest, no evidence of pulmonary embolism. 5. COPD. 6. Chest pain, elevated troponin, per Cardiology. 7. Hypertension. 8. Hyperlipidemia. Plan . going home w hospice no further hemoptysis 1. antibx and steroid 2. Obtain old films for comparison. 3. Oxygen supplementation. 4. Nebulized treatments. 5. Follow calcium level. 6. Deep venous thrombosis prophylaxis. discussed w pt and family AICHA RUSSELL MD Jan 23, 2017 11:40
--- NOTE | 2017-01-24 22:21 | DS ---
DATE OF DISCHARGE: 01/23/2017 DISCHARGE DIAGNOSES: 1. Acute on chronic hypoxic respiratory failure. 2. Hypercalcemia due to malignancy. 3. Elevated troponins likely due to hypoxia. 4. Stage IV lung cancer with osseous mets. 5. Insomnia. 6. Constipation. 7. Hemoptysis. BRIEF HOSPITAL COURSE: A 71-year-old male patient admitted to the hospital for acute on chronic respiratory failure, was treated for a suspected pneumonia and also he had a severe hypercalcemia at the time of admission, which has been responded well for IV hydration and bisphosphonates. During hospitalization, he was evaluated by Dr. Verdugo, Dr. Gann and Dr. Rivera. Given his poor prognosis as per oncology hospice has been offered and palliative team discussed with the patient and his family members, they agreed to go home with home hospice given his poor prognosis and poor quality of life. Has been sent home with hospice in stable condition. DISCHARGE EXAMINATION: Please see my progress note. DISCHARGE CONDITION: Stable. PROGNOSIS: Poor, guarded. MEDICATIONS: Reviewed and reconciled. Please see MRAD. DIET: Regular diet. Total time spent for discharge is 32 minutes for patient education, counseling, and coordination of care. AKI XIONG MD DR: ELI/shayy JOB#: [id number] / [id number] JACKIE
== END 2017-01-23 19:26 | disposition hospice, home (50) | DRG 189 ==
LOC: ER 22:46 → 6 SOUTH 01-20 01:22
PROVIDERS: ADMIT Internal Medicine; ATTEND Internal Medicine
DX: J96.21 Acute and chronic respiratory failure with hypoxia (principal); J15.6 Pneumonia due to other Gram-negative bacteria; J44.0 Chronic obstructive pulmonary disease with (acute) lower respiratory infection; C34.90 Malignant neoplasm of unspecified part of unspecified bronchus or lung; C79.51 Secondary malignant neoplasm of bone; J44.1 Chronic obstructive pulmonary disease with (acute) exacerbation; R04.2 Hemoptysis; E83.52 Hypercalcemia; E78.00 Pure hypercholesterolemia, unspecified; E78.5 Hyperlipidemia, unspecified; E86.0 Dehydration; G47.00 Insomnia, unspecified; I10 Essential (primary) hypertension; I48.91 Unspecified atrial fibrillation; H53.8 Other visual disturbances; M19.90 Unspecified osteoarthritis, unspecified site; K59.00 Constipation, unspecified; Z66 Do not resuscitate; Z82.3 Family history of stroke; Z82.49 Family history of ischemic heart disease and other diseases of the circulatory system; Z85.118 Personal history of other malignant neoplasm of bronchus and lung; Z87.891 Personal history of nicotine dependence; Z92.21 Personal history of antineoplastic chemotherapy; Z92.3 Personal history of irradiation
CPT/HCPCS: 36415; 70450; 70553; 71010; 71275; 74177; 78306; 80048; 80053; 80202; 82040; 82310; 83605; 84484; 85007; 85018; 85027; 87040; 87804; 93005; 93306; 94250; 94640; 94760; 96361; 96374; 96375; A9503; J0780; J1160; J1650; J2405; J2430; J2543; J3370; J7030; J7040; J7050; J7512; J7620; Q0167; Q9967; 99285-25; A9585